=== PATIENT | female | born 1955 | race Caucasian/White ===

== ENCOUNTER 2023-07-29 06:46 | Outpatient (OUT) | payer BC, SELFPAY ==
[2023-07-29 07:27] LABS: Basophils Absolute Auto 0.1 10^3/uL (0.0-0.1); Basophils Percent Auto 1.2 % (0.2-2.0); Eosinophils Absolute Auto 0.4 10^3/uL (0.0-0.7); Eosinophils Percent Auto 4.2 % (0.9-7.0); Hematocrit 41.7 % (36.0-48.0); Hemoglobin 13.8 g/dL (12.0-16.0); Immature Granulocytes Abs Auto 0.02 10^3/uL (0.00-0.03); Immature Granulocytes Pct Auto 0.2 % (0.0-0.5); Lymphocytes Absolute Auto 3.8 10^3/uL (1.2-3.8); Lymphocytes Percent Auto 40.5 % (20.5-60.0); Mean Corpuscular HGB Conc 33.1 g/dL (29.9-35.2); Mean Corpuscular Hemoglobin 31.3 pg (26.7-34.0); Mean Corpuscular Volume 94.6 fL (81.0-99.0); Mean Platelet Volume 11.2 fL (9.5-13.5); Monocytes Absolute Auto 0.8 10^3/uL (0.3-0.8); Monocytes Percent Auto 8.7 % (1.7-12.0); Neutrophils Absolute Auto 4.2 10^3/uL (1.4-6.5); Neutrophils Percent Auto 45.2 % (43.0-75.0); Platelet Count 249 10^3/uL (150-450); Red Blood Count 4.41 10^6/uL (4.20-5.40); Red Cell Distribution Width 11.7 % (11.0-15.0); White Blood Count 9.3 10^3/uL (4.0-11.0)
[2023-07-29 07:49] LABS: Alanine Aminotransferase 43 U/L (14-59); Albumin Level 3.8 g/dL (3.4-5.0); Alkaline Phosphatase 72 U/L (46-116); Anion Gap 13.2; Aspartate Amino Transferase 31 U/L (15-37); BUN Creatinine Ratio 19.2; Bilirubin Total 0.4 mg/dL (0.2-1.0); Calcium 9.3 mg/dL (8.5-10.1); Chloride 103 mmol/L (98-107); Chol HDL Ratio 4.4; Cholesterol 221 mg/dL (<=200); Estimated GFR (African America >60 (>=60); Estimated GFR (Non-African Ame 56 (>=60); Globulin 3.7 g/dL; Glucose 139 mg/dL (74-106); HDL Cholesterol 50 mg/dL (40-60); Potassium 4.2 mmol/L (3.5-5.1); Sodium 140 mmol/L (136-145); Total Protein 7.5 g/dL (6.4-8.2); Triglycerides 263 mg/dL (<=150); VLDL CHOLESTEROL 52.6 mg/dL
== END 2023-07-29 06:47 | disposition home or self-care (01) ==
LOC: LAB 06:50
PROVIDERS: PCP Family Medicine; Visit Provider Family Medicine
DX: Z00.00 Encounter for general adult medical examination without abnormal findings (principal); E78.5 Hyperlipidemia, unspecified; I10 Essential (primary) hypertension
CPT/HCPCS: 36415; 80053; 80061; 85025

== ENCOUNTER 2024-03-26 11:42 | Outpatient (OUT) | payer BC, SELFPAY ==
--- OUTSIDE RECORDS SUMMARY | 2024-03-26 11:49 | XMS_ITS | CCD ---
Author Organization [facility] Care Team Providers Care Retail Merchandising Coordinator Name Role Phone Judith Antunez Unavailable DR JUDITH ANTUNEZ Admitting Unavailable TULIO, DR JUDITH Walton Attending Unavailable TULIO, DR JUDITH Walton Primary Care Unavailable MEG, DR VERNON Nunez Consulting Unavailable TULIO, DR JUDITH Walton Consulting Unavailable TULIO, DR JUDITH Walton Admitting Unavailable TULIO, DR JUDITH Walton Attending Unavailable TULIO, DR JUDITH Walton Primary Care Unavailable TULIO, DR JUDITH Walton Consulting Unavailable MD Lois Limon Attending Provider [phone] MD Judith Antunez Primary Care Provider Asaad, Imad Unavailable Asaad, Imad Admitting Unavailable Ashly, Imad Attending Unavailable Judith Antunez Primary Care Unavailable Judith Antunez Primary Care Unavailable Judith Antunez Attending Unavailable Judith Antunez Admitting Unavailable MD Judith Antunez Primary Care Provider MD Judith Antunez Attending Provider [phone] PHYSICIAN, UNKNOWN Referring Unavailable JUDITH ANTUNEZ Primary Care Unavailable RON LUIS Admitting Unavailable RON LUIS Attending Unavailable Judith Antunez MD Primary Care Provider RON LUIS Attending Unavailable BECKY LOPEZ Attending Unavailable BECKY LOPEZ Attending Unavailable INDER BEGUM Attending Unavailable JUDITH ANTUNEZ Referring Narayan Allergies Allergy Classification Reported Allergen(s) Allergy Type Date of Onset Reaction(s) Facility (1 source) patient allergy list reviewed by nurse or physicia Propensity to adverse reactions 4 Comment:Done [employer] Other (1 source) Allergies Reconciled Propensity to adverse reactions Unknown [employer] Other Medications Current Medications Medication Drug Class(es) Dates Sig (Normalized) Sig (Original) clobetasol propionate 0.5 mg/ml topical cream (2 sources) Corticosteroid Start: 07-20-2022 Clobetasol Propionate 0.05 % 1 application Externally Twice a day for 10 days Jun, Active lisinopril 10 mg oral tablet (8 sources) Angiotensin Converting Enzyme Inhibitor Start: 07-09-2023 take 1 tablet by mouth once daily Lisinopril Active 0 .ROUTE .COMPLEX July 09, 2023 9:28am TAKE 1 TABLET BY MOUTH EVERY DAY Start: 10-04-2022 End: 07-09-2023 lisinopril 10 MG tablet .COM PLEX 07/09/2023 Active 24 hr metoprolol succinate 100 mg extended release oral tablet (8 sources) beta-Adrenergic Eric Start: 07-09-2023 take 1 tablet by mouth once daily Metoprolol Succinate Active 0 .ROUTE .COMPLEX July 09, 2023 9:28am TAKE 1 TABLET BY MOUTH EVERY DAY Start: 10-04-2022 End: 07-09-2023 take 1 tablet by mouth once daily metoprolol succinate XL (Toprol-XL) 100 MG 24 hr tablet Take 100 mg by mouth Daily 07/09/2023 Active PARoxetine hydrochloride 30 mg oral tablet (8 sources) Serotonin Reuptake Inhibitor Start: 07-09-2023 take 1 tablet by mouth once daily Paroxetine Hcl Active 0 .ROUTE .COMPLEX July 09, 2023 9:28am TAKE 1 TABLET BY MOUTH EVERY DAY Start: 10-04-2022 End: 07-09-2023 PARoxetine (Paxil) 30 MG tab let .COMPLEX 07/09/2023 Active phenylephrine hydrochloride 10 mg oral tablet (2 sources) alpha-1 Adrenergic Agonist take 1 tablet by mouth before mealtime phenylephrine (Sudafed PE) 10 MG tablet Take 10 mg by mouth in the morning. Take before meals. Active polyethylene glycol 3350 [id number] mg / potassium chloride 2970 mg / sodium bicarbonate 6740 mg / sodium chloride 5860 mg / sodium sulfate 37002 mg powder for oral solution (1 source) Osmotic Laxative Start: 08-23-19 PEG-3350/Electrolytes 236 GM as directed Orally once daily for 1 days July, Active simvastatin 40 mg oral tablet (8 sources) HMG-CoA Reductase Inhibitor Start: 07-09-19 24 take 1 tablet by mouth once daily Simvastatin Active 0 .ROUTE .COMPLEX 90 July 09, 2023 9:28am TAKE 1 TABLET BY MOUTH EVERY DAY Start: 10-04-2022 End: 07-09-2023 simvastatin (Zocor) 40 MG ta blet .COMPLEX 07/09/2023 Active Problems Active Problems Problem Classification Problem Date Documented Da te Episodic/Chronic Allergic reactions (3 sources) Flexural eczema; Translations: [Flexural eczema] Chronic Anxiety disorders (3 sources) Mixed anxiety and depressive disorder; Translations: [Other specified anxiety disorders] Onset: 12-09-2016 Chronic Diabetes mellitus with complications (1 source) Type II diabetes mellitus uncontrolled; Translations: [Diabetes mellitus without mention of complication, type II or unspecified type, uncontrolled] Onset: 06-08-2014 Chronic Diabetes mellitus without complication (1 source) Type 2 diabetes mellitus without complication; Translations: [Diabetes mellitus without mention of complication, type II or unspecified type, not stated as uncontrolled] Onset: 06-08-2014 Chronic Diabetes mellitus without complication (5 sources) Impaired fasting glycemia; Translations: [Impaired fasting glucose] Onset: 05-17-2013 Episodic Disorders of lipid metabolism (6 sources) Hyperlipidemia; Translations: [Hyperlipidemia, unspecified] Onset: 05-17-2013 07-21-2023 Chronic Diverticulosis and diverticulitis (2 sources) Diverticular disease; Translations: [Diverticulosis] Chronic Essential hypertension (8 sources) Essential hypertension; Translations: [Essential (primary) hypertension] Onset: 07-22-2023 Chronic Miscellaneous mental health disorders (2 sources) Primary insomnia; Translations: [Primary insomnia] 03-16-2024 Chronic Nonmalignant breast conditions (2 sources) Mastodynia; Translations: [Pain of left breast] 07-21-2023 Episodic Osteoarthritis (3 sources) Arthritis of first carpometacarpal joint of left hand; Translations: [Unilateral primary osteoarthritis of first carpometacarpal joint, left hand] Onset: 07-22-2023 07-22-2023 Chronic Other connective tissue disease (1 source) Triggering of digit; Translations: [Trigger finger, unspecified finger] 07-21-2023 Episodic Other connective tissue disease (1 source) Trigger finger, unspecified finger; Translations: [Trigger finger (acquired)] 07-21-2023 Episodic Other gastrointestinal disorders (1 source) Stool DNA-based colorectal cancer screening positive; Translations: [Other fecal abnormalities] Episodic Other hereditary and degenerative nervous system conditions (3 sources) Restless legs; Translations: [Restless legs syndrome] Onset: 03-29-2015 Chronic Other nervous system disorders (2 sources) Word finding difficulty ; Translations: [Other speech disturbances] 03-16-2024 Episodic Other nutritional; endocrine; and metabolic disorders (2 sources) Obesity; Translations: [Obesity, unspecified] Onset: 06-08-2014 Chronic Other nutritional; endocrine; and metabolic disorders (1 source) Obese class I; Translations: [Body mass index 32.0-32.9, adult] Onset: 04-14-2017 Chronic Other screening for suspected conditions (not mental disorders or infectious disease) (7 sources) Encounter for screening for malignant neoplasm of colon; Translations: [Encounter for screening mammogram for malignant neoplasm of breast] Onset: 10-23-2021 Episodic Residual codes; unclassified (3 sources) Obstructive sleep apnea syndrome; Translations: [Obstructive sleep apnea] Onset: 03-29-2015 03-16-2024 Chronic Residual codes; unclassified (4 sources) Amnesia; Translations: [Other amnesia] 03-16-2024 Episodic Skin and subcutaneous tissue infections (2 sources) Erythrasma; Translations: [Erythrasma] Episodic Spondylosis; intervertebral disc disorders; other back problems (3 sources) Cervical radiculopathy; Translations: [Radiculopathy, cervical region] Episodic Past or Other Problems Problem Classification Problem Date Documented Da te Episodic/Chronic Abdominal pain (1 source) Right lower quadrant pain; Translations: [Right lower quadrant pain] Onset: 4 Episodic Acute bronchitis (1 source) Acute bronchitis; Translations: [Acute bronchitis, unspecified] Onset: 6 Episodic Genitourinary symptoms and ill-defined conditions (1 source) Dysuria; Translations: [Dysuria] Onset: 5 Episodic Other connective tissue disease (1 source) Pain in forearm; Translations: [Pain in joint, forearm] Onset: 9 Episodic Other connective tissue disease (1 source) Acquired trigger finger; Translations: [Trigger finger] Onset: 9 Episodic Other gastrointestinal disorders (1 source) Other fecal abnormalities; Translations: [Other fecal abnormalities] Onset: 3 Episodic Other lower respiratory disease (1 source) Snoring; Translations: [Snoring] Onset: 5 Episodic Other non-traumatic joint disorders (1 source) Joint pain; Translations: [Pain in unspecified joint] Onset: 8 Episodic Other nutritional; endocrine; and metabolic disorders (1 source) Abnormal weight gain; Translations: [Abnormal weight gain] Onset: 7 Episodic Otitis media and related conditions (1 source) Acute secretory otitis media; Translations: [Other acute nonsuppurative otitis media, right ear] Onset: 9 Episodic Residual codes; unclassified (1 source) Family history of diabetes mellitus; Translations: [Family history of diabetes mellitus] Onset: 4 Episodic Residual codes; unclassified (1 source) Family history of malignant neoplasm of gastrointestinal tract; Translations: [Family history of malignant neoplasm of digestive organs] Onset: 4 Episodic Results Test Name Value Interpretation Reference Range Facility MM screening mammo BI w/CADo n 08-20-2023 MM screening mammo BI w/CAD [facility] [place] [address] Mammography Report Signed Patient: Dana Snyder MR#: [id number] : 1955 Acct:[id number] Age/Sex: 68 / F ADM Date: 08/19/23 Loc: [place] Room: Type: [facility] Attending Dr: Judith Antunez MD Copies to: Judith Antunez MD Ordering Provider: Judith Antunez MD Date of Service: 08/19/23 MM/MM screening mammo BI w/CAD: Z12.31 - Encounter for screening mammogram for malignant ... CLINICAL DATA: Screening for malignancy. BILATERAL SCREENING MAMMOGRAMS - FULL FIELD DIGITAL WITH TOMOSYNTHESIS AND CAD Tomosynthesis craniocaudal and mediolateral oblique views of both breasts were obtained using low- dose digital technique. Comparison is made to prior studies from 10/23/2021, 10/16/2020, and 06/23/2017. This examination was reviewed with the aid of CAD. There are scattered fibroglandular densities. Benign-appearing lymph nodes are noted along the chest wall. Benign-appearing calcifications are present bilaterally. There are no dominant masses, typically malignant calcifications or architectural distortion. There has been no significant interval change. MM/MM screening mammo BI w/CAD IMPRESSION: NO MAMMOGRAPHIC EVIDENCE OF MALIGNANCY. ROUTINE FOLLOW-UP IS RECOMMENDED IN ONE YEAR. RESULT CODE: 2 Benign Findings(s) DENSITY CODE: 2 (approximately 25-50% glandular) FOLLOW UP: 1YR The false-negative rate of mammography is approximately 10-percent. Management of a palpable abnormality must be based on clinical grounds. Patient was entered into a reminder system with a target due date for the next mammogram. Impression dictated by: Claude Peñaloza M.D.08/20/2023 11:50 AM Dictation Location: [facility] Transcribed By: ELMER 08/20/23 1150 Dictated By: Claude Peñaloza II, MD 08/20/23 1146 Signed By: 08/20/23 1150 Normal [facility] Basophils Auto (Bld) [#/Vol] on 07-29-2023 Basophils (Bld) [#/Vol] 0.1 10 3/uL 0.0-0.1 [facility] Basophils/100 WBC Auto (Bld) on 07-29-2023 Basophils/100 WBC (Bld) 1.2 % 0.2-2.0 [facility] Cholesterol in LDL Calc [Mas s/Vol]on 07-29-2023 Cholesterol in LDL [Mass/Vol] 119.0 mg/dL [facility] Comment on above: <100 mg/dl [id number] 0-129 mg/dl NEAR OR ABOVE [id number] mg/dl BORDERLINE [id number] mg/dl HIGH>190 mg/dl VERY HIGH Cholesterol in VLDL Calc [Ma ss/Vol]on 07-29-2023 Cholesterol in VLDL [Mass/Vol] 52.6 mg/dL [facility] Eosinophils/100 WBC Auto (Bl d)on 07-29-2023 Eosinophils/100 WBC (Bld) 4.2 % 0.9-7.0 [facility] Erythrocyte distribution wid th Auto (RBC) [Ratio]on 07-29-2023 Erythrocyte distribution width (RBC) [Ratio] 11.7 % 11.0-15.0 [facility] Estimated glomerular filtrat ion rate (GFR) non- Americanon 07-29-2023 GFR/1.73 sq M.predicted among non-blacks MDRD (S/P/Bld) [Vol rate/Area] 56 mL/min/{1.73_m2} >=60 [facility] Globulin Calc (S) [Mass/Vol] on 07-29-2023 Globulin (S) [Mass/Vol] 3.7 g/dL [facility] Hematocrit Auto (Bld) [Volum e fraction]on 07-29-2023 Hematocrit (Bld) [Volume fraction] 41.7 % 36.0-48.0 [facility] Hemoglobin [Mass/volume] in Bloodon 07-29-2023 Hemoglobin (Bld) [Mass/Vol] 13.8 g/dL 12.0-16.0 [facility] Laboratory - Chemistry and C hemistry - challengeon 07-29-2023 Albumin [Mass/Vol] 3.8 g/dL 3.4-5.0 [facility] ALP [Catalytic activity/Vol] 72 U/L 46-116 [facility] ALT [Catalytic activity/Vol] 43 U/L 14-59 [facility] AST [Catalytic activity/Vol] 31 U/L 15-37 [facility] Bilirubin [Mass/Vol] 0.4 mg/dL 0.2-1.0 [facility] Calcium [Mass/Vol] 9.3 mg/dL 8.5-10.1 [facility] Chloride [Moles/Vol] 103 mmol/L 98-107 [facility] Cholesterol [Mass/Vol] 221 mg/dL <=200 [facility] Cholesterol in HDL [Mass/Vol] 50 mg/dL 40-60 [facility] Comment on above: > or =60 mg/dl - LOW CARDIOVASCULAR RISK<40 mg/dl - HIGH CARDIOVASCULAR RISK CO2 [Moles/Vol] 28.0 mmol/L 21.0-32.0 [facility] Creatinine [Mass/Vol] 0.99 mg/dL 0.55-1.02 [facility] GFR/1.73 sq M.predicted MDRD (S/P/Bld) [Vol rate/Area] mL/min/{1.73_m2} >=60 [facility] Glucose [Mass/Vol] 139 mg/dL 74-106 [facility] Potassium [Moles/Vol] 4.2 mmol/L 3.5-5.1 [facility] Protein [Mass/Vol] 7.5 g/dL 6.4-8.2 [facility] Sodium [Moles/Vol] 140 mmol/L 136-145 [facility] Triglyceride [Mass/Vol] 263 mg/dL <=150 [facility] Urea nitrogen [Mass/Vol] 19.0 mg/dL 7.0-18.0 [facility] Urea nitrogen/Creatinine [Mass ratio] 19.2 mg/mg [facility] Laboratory - Hematology and Cell countson 07-29-2023 Immature granulocytes/100 WBC (Bld) 0.2 % 0.0-0.5 [facility] Leukocytes [#/volume] correc bruce for nucleated erythrocytes in Blood by Automated counon 07-29-2023 WBC corrected for nucl RBC Auto (Bld) [#/Vol] 9.3 10 3/uL 4.0-11.0 [facility] Lymphocytes Auto (Bld) [#/Vo l]on 07-29-2023 Lymphocytes (Bld) [#/Vol] 3.8 10 3/uL 1.2-3.8 [facility] Lymphocytes/100 WBC Auto (Bl d)on 07-29-2023 Lymphocytes/100 WBC (Bld) 40.5 % 20.5-60.0 [facility] MCH Auto (RBC) [Entitic mass ]on 07-29-2023 MCH (RBC) [Entitic mass] 31.3 pg 26.7-34.0 [facility] MCHC Auto (RBC) [Mass/Vol]on 07-29-2023 MCHC (RBC) [Mass/Vol] 33.1 g/dL 29.9-35.2 [facility] MCV Auto (RBC) [Entitic vol] on 07-29-2023 MCV (RBC) [Entitic vol] 94.6 fL 81.0-99.0 [facility] Monocytes Auto (Bld) [#/Vol] on 07-29-2023 Monocytes (Bld) [#/Vol] 0.8 10 3/uL 0.3-0.8 [facility] Monocytes/100 WBC Auto (Bld) on 07-29-2023 Monocytes/100 WBC (Bld) 8.7 % 1.7-12.0 [facility] Neutrophils Auto (Bld) [#/Vo l]on 07-29-2023 Neutrophils (Bld) [#/Vol] 4.2 10 3/uL 1.4-6.5 [facility] Neutrophils/100 WBC Auto (Bl d)on 07-29-2023 Neutrophils/100 WBC (Bld) 45.2 % 43.0-75.0 [facility] No Panel Informationon 07-28 Eosinophils # (Auto) 0.4 10 3/uL 0.0-0.7 [facility] Immature Granulocyte # (Auto) 0.02 10 3/uL 0.00-0.03 [facility] Platelet mean volume Auto (B ld) [Entitic vol]on 07-29-2023 Platelet mean volume (Bld) [Entitic vol] 11.2 fL 9.5-13.5 [facility] Platelets Auto (Bld) [#/Vol] on 07-29-2023 Platelets (Bld) [#/Vol] 249 10 3/uL 150-450 [facility] RBC Auto (Bld) [#/Vol]on RBC (Bld) [#/Vol] 4.41 10 6/uL 4.20-5.40 [facility] Serum or plasma albumin/glob ulin mass ratioon 07-29-2023 Albumin/Globulin [Mass ratio] 1.0 {ratio} [facility] Serum or plasma anion gap de terminationon 07-29-2023 Anion gap [Moles/Vol] 13.2 mmol[facility] Serum or plasma total choles terol/high density lipoprotein (HDL) cholesterol mass bessy 07-29-2023 Cholesterol.total/Cho lesterol in HDL [Mass ratio] 4.4 {ratio} [facility] Comment on above: 3.3 - 4.4 LOW RISK4. 4 - 7.1 AVERAGE RISK7.1 - 11.0 MODERATE RISK>11.0 HIGH RISK Alex 10-04-2022 L Specimen: [id number] Received: 10/04/22 Status: ULISES [place] Num: [id number] Spec Type: Surgical Subm Dr: Lois Limon MD Tissues: A Colon Biopsy (ASCENDING POLYPS) B Colon Biopsy (BNORMAL MUCOSA SIGMOID) Procedures: JOSE Gross/Micro L4/2 Age/ Patient Sex Location Account Attending Physician Dana Snyder 67/F [id number] Lois Limon MD SPEC NUM: [id number] RECD: 10/04/22 STATUS: ULISES [place] NUM: [id number] GILMER: 10/04/22- SUBM DR: Lois Limon MD ENTERED: 10/04/[address] [facility] [address]: SPEC TYPE: Surgical DEPT: S ORDERED: HE/4, Gross/Micro L4/2 ORDERED: HE/4, Gross/Micro L4/2 Pathological Diagnosis A. Colon, ascending, polyps, biopsy: - Hyperplastic polyps of colon. B. Colon, sigmoid, abnormal mucosa, biopsy: - Colonic mucosa with hyperplastic features. Clinical Information Positive Cologuard Gross Description A. Received in formalin labeled with the patient's name, date of and Ascending polyps are three shepherd tissues ranging from 0.5 x 0.3 x 0.2 cm to 0.6 x 0.4 x 0.2 cm admixed with fecal material. Entirely submitted in one cassette labeled A1. B. Received in formalin labeled with the patient's name, date of and abnormal sigmoid mucosa are two shepherd tissues measuring 0.3 x 0.2 x 0.2 cm and 0.5 x 0.3 x 0.2 cm. Entirely submitted in one cassette labeled B1. Specimen: [id number] Received: 10/04/22 Status: ULISES [place] Num: [id number] Spec Type: Surgical Subm Dr: Lois Limon MD Tissues: A Colon Biopsy (ASCENDING POLYPS) B Colon Biopsy (BNORMAL MUCOSA SIGMOID) Procedures: HE/4, Gross/Micro L4/2 Patient: Holden Snyderen [id number] (Continued) Specimen: [id number] Received: 10/04/22 (Continued) Signed (signature on file) Jaden Mauro MD 10/07/221001 Specimen: [id number] Received: 10/04/22 Status: ULISES [place] Num: [id number] Spec Type: Surgical Subm Dr: Lois Limon MD Tissues: A Colon Biopsy (ASCENDING POLYPS) B Colon Biopsy (BNORMAL MUCOSA SIGMOID) Procedures: MARY ANN/Je, Gross/Micro L4/2 Patient: Dana Snyder [id number] (Continued) Specimen: [id number] Received: 10/04/22 (Continued) Microscopic Description A. Two H E slides reviewed. The microscopic examination confirms the diagnosis. B. Two H E slides reviewed. The microscopic examination confirms the diagnosis. CPT Codes 28589r4 Specimen: [id number] Received: 10/04/22 Status: ULISES [place] Num: [id number] Spec Type: Surgical Subm Dr: Lois Limon MD Tissues: A Colon Biopsy (ASCENDING POLYPS) B Colon Biopsy (BNORMAL MUCOSA SIGMOID) Procedures: HE/4, Gross/Micro L4/2 Patient: Dana Snyder [id number] (Continued) Signed (signature on file) Jaden Mauro MD 10/07/22 1002 Normal [facility] CBC AUTO DIFFon 08-10-2022 BASO # 0.1 103/ul Normal 0.0-0.1 [facility] Comment on above: Performed By: #### C BC #### [facility] [address] [place] [address] Dr. Mj Dorsey Basophils/100 WBC (Bld) 0.9 % Normal 0.2-2.0 [facility] Comment on above: Performed By: #### C BC #### [facility] [address] [place] [address] Dr. jM Dorsey EO # 0.3 103/ul Normal 0.0-0.7 [facility] Comment on above: Performed By: #### C BC #### [facility] [address] [place] [address] Dr. Mj Dorsey Eosinophils/100 WBC (Bld) 3.2 % Normal 0.9-7.0 [facility] Comment on above: Performed By: #### C BC #### [facility] [address] [place] [address] Dr. Mj Dorsey Erythrocyte distribution width (RBC) [Ratio] 11.9 % Normal 11.0-15.0 [facility] Comment on above: Performed By: #### C BC #### [facility] [address] [place] [address] Dr. Mj Dorsey Hematocrit (Bld) [Volume fraction] 41.4 % Normal 36.0-48.0 [facility] Comment on above: Performed By: #### C BC #### [facility] [address] [place] [address] Dr. Mj Dorsey Hemoglobin (Bld) [Mass/Vol] 13.9 g/dL Normal 12.0-16.0 [facility] Comment on above: Performed By: #### C BC #### [facility] [address] [address] [address] Mj Dorsey IG # 0.03 10e3/ul Normal 0.00-0.03 [facility] Comment on above: Performed By: #### C BC #### [facility] [address] [place] [address] Dr. Mj Dorsey IG % 0.3 % Normal 0.0-0.5 [facility] Comment on above: Performed By: #### C BC #### [facility] [address] [place] [address] Dr. Mj Dorsey LYMPH # 4.3 103/ul Critically high 1.2-3.8 [facility] Comment on above: Performed By: #### C BC #### [facility] [address] [place] [address] Dr. Mj Dorsey Lymphocytes/100 WBC (Bld) 41.3 % Normal 20.5-60.0 [facility] Comment on above: Performed By: #### C BC #### [facility] [address] [place] [address] Dr. Mj Dorsey MANUAL DIFF REQ NO Normal [facility] Comment on above: Performed By: #### C BC #### [facility] [address] [place] [address] Dr. Mj Dorsey MCH (RBC) [Entitic mass] 31.2 pg Normal 26.7-34.0 [facility] Comment on above: Performed By: #### C BC #### [facility] [address] [place] [address] Dr. Mj Dorsey MCHC (RBC) [Mass/Vol] 33.6 g/dL Normal 29.9-35.2 [facility] Comment on above: Performed By: #### C BC #### [facility] [address] [address] [address] Mj Dorsey MCV (RBC) [Entitic vol] 92.8 fL Normal 81.0-99.0 [facility] Comment on above: Performed By: #### C BC #### [facility] [address] [address] [address] Mj Dorsey MONO # 0.8 103/ul Normal 0.3-0.8 [facility] Comment on above: Performed By: #### C BC #### [facility] [address] [place] [address] Dr. Mj Dorsey Monocytes/100 WBC (Bld) 8.0 % Normal 1.7-12.0 [facility] Comment on above: Performed By: #### C BC #### [facility] [address] [place] [address] Dr. Mj Dorsey NEUT # 4.9 103/ul Normal 1.4-6.5 [facility] Comment on above: Performed By: #### C BC #### [facility] [address] [place] [address] Dr. Mj Dorsey Neutrophils/100 WBC (Bld) 46.3 % Normal 43.0-75.0 [facility] Comment on above: Performed By: #### C BC #### [facility] [address] [place] [address] Dr. Mj Dorsey Platelet mean volume (Bld) [Entitic vol] 10.4 fL Normal 9.5-13.5 [facility] Comment on above: Performed By: #### C BC #### [facility] [address] [place] [address] Dr. Mj Dorsey PLT 328 103/ul Normal 150-450 [facility] Comment on above: Performed By: #### C BC #### [facility] [address] [place] [address] Dr. Mj Dorsey RBC 4.46 106/ul Normal 4.20-5.40 [facility] Comment on above: Performed By: #### C BC #### [facility] [address] [address] [address] Mj Dorsey WBC 10.5 103/ul Normal 4.0-11.0 [facility] Comment on above: Performed By: #### C BC #### [facility] [address] [place] [address] Dr. Mj Dorsey GLYCOHEMOGLOBIN A1Con 2022 ADA RECOMMENDATION SEE BELOW Normal [facility] Comment on above: Result Comment: ADA RECOMMENDED LIMIT 4.0 - 6.0 ADA THERAPEUTIC TARGET < 7.0 ACTION SUGGESTED > 7.0 Performed By: #### A 1C #### [facility] [address] [place] [address] Dr. Mj Dorsey Glucose [Mass/Vol] 128 mg/dL Normal [facility] Comment on above: Performed By: #### A 1C #### [facility] [address] [place] [address] Dr. Mj Dorsey HbA1c (Bld) [Mass fraction] 6.1 % Normal 4.5-6.2 [facility] Comment on above: Performed By: #### A 1C #### [facility] [address] [place] [address] Dr. Mj Dorsey LIPID PROFILEon 08-10-2022 CHOL-HDL RATIO NORM SEE BELOW Normal [facility] Comment on above: Result Comment: 3.3 - 4.4 LOW RISK 4.4 - 7.1 AVERAGE RISK 7.1 - 11.0 MODERATE RISK >11.0 HIGH RISK Performed By: #### C MP, LIPID #### [facility] [address] [place] [address] Dr. Mj Dorsey Cholesterol [Mass/Vol] 153 mg/dL Normal <=200 [facility] Comment on above: Performed By: #### C MP, LIPID #### [facility] [address] [place] [address] Dr. Mj Dorsey Cholesterol in HDL [Mass/Vol] 41 mg/dL Normal 40-60 [facility] Comment on above: Performed By: #### C MP, LIPID #### [facility] [address] [place] [address] Dr. Mj Dorsey Cholesterol in LDL [Mass/Vol] 68.8 mg/dL Normal [facility] Comment on above: Performed By: #### C MP, LIPID #### [facility] [address] [address] [address] Mj Dorsey Cholesterol.total/Cho lesterol in HDL [Mass ratio] 3.7 {ratio} Normal [facility] Comment on above: Performed By: #### C MP, LIPID #### [facility] [address] [address] [address] Mj Dorsey HDL NORMAL > or = 60 mg/dl - LOW CARDIOVASCULAR RISK <40 mg/dl - HIGH CARDIOVASCULAR RISK Normal [facility] Comment on above: Performed By: #### C MP, LIPID #### [facility] [address] [place] [address] Dr. Mj Dorsey LDL CALC NORMAL SEE BELOW Normal [facility] Comment on above: Result Comment: <100 mg/dl OPTIMAL 100 - 129 mg/dl NEAR OR ABOVE OPTIMAL 130 - 159 mg/dl BORDERLINE HIGH 160 - 189 mg/dl HIGH >190 mg/dl VERY HIGH Performed By: #### C MP, LIPID #### [facility] [address] [place] [address] Dr. Mj Dorsey Triglyceride [Mass/Vol] 216 mg/dL Critically high <=150 [facility] Comment on above: Performed By: #### C MP, LIPID #### [facility] [address] [place] [address] Dr. Mj Dorsey VLDL CALC 43.2 mg/dL Normal [facility] Comment on above: Performed By: #### C MP, LIPID #### [facility] [address] [address] [address] Mj Dorsey PROF 14(COMP METB)on 023 Albumin [Mass/Vol] 3.5 g/dL Normal 3.4-5.0 [facility] Comment on above: Performed By: #### C MP, LIPID #### [facility] [address] [place] [address] Dr. Mj Dorsey Albumin/Globulin [Mass ratio] 1.0 {ratio} Normal [facility] Comment on above: Performed By: #### C MP, LIPID #### [facility] [address] [address] [address] Mj Dorsey ALP [Catalytic activity/Vol] 65 U/L Normal 46-116 [facility] Comment on above: Performed By: #### C MP, LIPID #### [facility] [address] [address] [address] Mj Dorsey ALT [Catalytic activity/Vol] 41 U/L Normal 14-59 [facility] Comment on above: Performed By: #### C MP, LIPID #### [facility] [address] [address] [address] Mj Dorsey Anion gap [Moles/Vol] 14.3 mmol/L Normal [facility] Comment on above: Performed By: #### C MP, LIPID #### [facility] [address] [place] [address] Dr. Mj Dorsey AST [Catalytic activity/Vol] 18 U/L Normal 15-37 [facility] Comment on above: Performed By: #### C MP, LIPID #### [facility] [address] [place] [address] Dr. Mj Dorsey Bilirubin [Mass/Vol] 0.3 mg/dL Normal 0.2-1.0 [facility] Comment on above: Performed By: #### C MP, LIPID #### [facility] [address] [place] [address] Dr. Mj Dorsey Calcium [Mass/Vol] 8.7 mg/dL Normal 8.5-10.1 [facility] Comment on above: Performed By: #### C MP, LIPID #### [facility] [address] [place] [address] Dr. Mj Dorsey Chloride [Moles/Vol] 108 mmol/L Critically high 98-107 [facility] Comment on above: Performed By: #### C MP, LIPID #### [facility] [address] [address] [address] Mj Dorsey CO2 [Moles/Vol] 30.5 mmol/L Normal 21.0-32.0 [facility] Comment on above: Performed By: #### C MP, LIPID #### [facility] [address] [address] [address] Mj Dorsey Creatinine [Mass/Vol] 0.93 mg/dL Normal 0.55-1.02 [facility] Comment on above: Performed By: #### C MP, LIPID #### [facility] [address] [place] [address] Dr. Mj Dorsey EGFR-AF MOSOTHO >60 Normal >=60 [facility] Comment on above: Performed By: #### C MP, LIPID #### [facility] [address] [address] [address] Mj Dorsey EGFR-NON AF MOSOTHO >60 Normal >=60 [facility] Comment on above: Performed By: #### C MP, LIPID #### [facility] [address] [place] [address] Dr. Mj Dorsey Globulin (S) [Mass/Vol] 3.6 g/dL Normal [facility] Comment on above: Performed By: #### C MP, LIPID #### [facility] [address] [place] [address] Dr. Mj Dorsey Glucose [Mass/Vol] 121 mg/dL Critically high 74-106 [facility] Comment on above: Performed By: #### C MP, LIPID #### [facility] [address] [place] [address] Dr. Mj Dorsey Potassium [Moles/Vol] 4.8 mmol/L Normal 3.5-5.1 [facility] Comment on above: Performed By: #### C MP, LIPID #### [facility] [address] [address] [address] Mj Dorsey Protein [Mass/Vol] 7.1 g/dL Normal 6.4-8.2 [facility] Comment on above: Performed By: #### C MP, LIPID #### [facility] [address] [address] [address] Mj Dorsey Sodium [Moles/Vol] 148 mmol/L Critically high 136-145 [facility] Comment on above: Performed By: #### C MP, LIPID #### [facility] [address] [place], [place] [address] Dr. Mj Dorsey Urea nitrogen [Mass/Vol] 14.0 mg/dL Normal 7.0-18.0 [facility] Comment on above: Performed By: #### C MP, LIPID #### [facility] [address] [place], [place] [address] Dr. Mj Dorsey Urea nitrogen/Creatinine [Mass ratio] 15.1 mg/mg Normal [facility] Comment on above: Performed By: #### C MP, LIPID #### [facility] [address] [place], [place] [address] Dr. Mj Dorsey MG MAMM SCREEN 3D EVY CADon 10-23-2021 MG MAMM SCREEN 3D EVY CAD Patient: DANA SNYDER Exam Date: 10/23/2021 : 1955 Gender:F Ordering : DR JUDITH ANTUNEZ M.D. Admission #: [id number] Family : Order #: [id number] CLICK HERE TO VIEW EXAM RADIOLOGY REPORT PROCEDURE: MAMMOGRAM SCREENING 3D BILATERAL CAD COMPARISON: MG MAMM SCREEN 3D EVY CAD, 10/16/2020. MG MAMM SCREEN EVY W CAD, 06/23/2017. INDICATIONS: Screening mammography Calculator Name NCI Breast Cancer Risk Assessment Tool 5 Year Breast Cancer Risk 1.40% Lifetime Breast Cancer Risk 5.80% Personal Breast Cancer No Personal Ovarian Cancer No Treatments None Family Cancers None LOCATION: [facility] BREAST COMPOSITION: Scattered areas fibroglandular density. FINDINGS: DIAGNOSTIC CATEGORY 1--NEGATIVE. RIGHT BREAST: No significant suspicious finding. No significant change has occurred. LEFT BREAST: No significant suspicious finding. No significant change has occurred. RECOMMENDATIONS: ROUTINE MAMMOGRAM AND CLINICAL EVALUATION IN 12 MONTHS. PLEASE NOTE: A NORMAL MAMMOGRAM DOES NOT EXCLUDE THE POSSIBILITY OF BREAST CANCER. A CLINICALLY SUSPICIOUS PALPABLE LUMP SHOULD BE BIOPSIED. Dictated by: Vernon aPrks M.D. on 10/24/2021 at 10:38 Approved by: Vernon Parks M.D. on 10/24/2021 at 12:08 Normal [facility] Vital Signs Date Time Vital Sign Value Performing Clinician Facility 03-16-2024 15:33-0500 Body height 154.9 cm Inder Kel DO Work Phone: [facility] 03-16-2024 15:33-0500 Body mass index (BMI) [Ratio] 37.98 kg/m2 Inder Kel DO Work Phone: [facility] 03-16-2024 15:33-0500 Body weight 91.17 kg Inder Kel DO Work Phone: [facility] 03-16-2024 15:33-0500 Diastolic blood pressure 89 mm[Hg] Inder Kel DO Work Phone: [facility] 03-16-2024 15:33-0500 Heart rate 76 /min Inder Kel DO Work Phone: [facility] 03-16-2024 15:33-0500 Systolic blood pressure 167 mm[Hg] Inder Kel DO Work Phone: [facility] 07-21-2023 15:34-0400 Body height 154.94 cm MD Judith Antunez Work Phone: [facility] 07-21-2023 15:34-0400 Body mass index (BMI) [Ratio] 37.6 kg/m2 MD Judith Antunez Work Phone: [facility] 07-21-2023 15:34-0400 Body weight 90.32 kg MD Judith Antunez Work Phone: [facility] 07-21-2023 15:34-0400 Diastolic blood pressure 82 mm[Hg] MD Judith Antunez Work Phone: [facility] 07-21-2023 15:34-0400 Heart rate 66 /min MD Judith Antunez Work Phone: [facility] 07-21-2023 15:34-0400 Systolic blood pressure 141 mm[Hg] MD Judith Antunez Work Phone: [facility] 10-04-2022 11:32-0400 Diastolic blood pressure 95 mm[Hg] MD Judith Antunez Work Phone: [facility] 10-04-2022 11:32-0400 Heart rate 60 /min MD Judith Antunez Work Phone: [facility] 10-04-2022 11:32-0400 Respiratory rate 16 /min MD Judith Antunez Work Phone: [facility] 10-04-2022 11:32-0400 SaO2% (BldA) [Mass fraction] 93 % MD Judith Antunez Work Phone: [facility] 10-04-2022 11:32-0400 Systolic blood pressure 129 mm[Hg] MD Judith Antunez Work Phone: [facility] 10-04-2022 10:06-0400 Body height 154.94 cm MD Judith Antunez Work Phone: [facility] 10-04-2022 10:06-0400 Body temperature 98.8 [degF] MD Jduith Antunez Work Phone: [facility] 10-04-2022 10:06-0400 Body weight 85.72 kg MD Judith Antunez Work Phone: [facility] 07-18-2022 16:15-0400 Body height 153.67 cm Judith Antunez Other [facility] [employer] Other 07-18-2022 16:15-0400 Body mass index (BMI) [Ratio] 36.3 kg/m2 Judith Antunez Other [employer] Other 07-18-2022 16:15-0400 Body weight 85.73 kg Judith Antunez Other [employer] Other 07-18-2022 16:15-0400 Diastolic blood pressure 80 mm[Hg] Judith Antunez Other [employer] Other 07-18-2022 16:15-0400 SaO2% (BldA) [Mass fraction] 97 % Judith Antunez Other [employer] Other 07-18-2022 16:15-0400 Systolic blood pressure 126 mm[Hg] Judith Antunez Other [employer] Other Encounters Encounter Date Encounter Type Care Provider Facility Start: 03-16-2024 End: 03-16-2024 Office consultation new/estab patient 60 min Inder Kel DO Work Phone: [facility] Comment on above: Memory loss (Primary Dx); Word finding difficulty; Primary insomnia; TIMOTEO (obstructive sleep apnea) Start: 03-16-2024 End: 03-16-2024 ambulatory INDER KEL Not Available Start: 03-16-2024 End: 03-16-2024 Bamboo flowsheet Inder Kel DO Work Phone: [facility] Start: 03-16-2024 End: 03-16-2024 Bamboo flowsheet Inder Kel DO Work Phone: [facility] Start: 10-06-2023 End: 10-06-2023 ambulatory BECKY B APLING Not Available Start: 09-08-2023 End: 09-08-2023 ambulatory BECKY B APLING Not Available Start: 08-27-2023 End: 08-27-2023 Evaluation and management of inpatient [facility] Start: 08-26-2023 End: 08-26-2023 ambulatory [facility] Start: 08-19-2023 End: 08-19-2023 ambulatory Judith Antunez Facility:[facility] Start: 08-19-2023 End: 08-19-2023 ambulatory MD Judith Antunez Work Phone: [facility] Work Phone: Start: 08-19-2023 End: 08-19-2023 Patient encounter procedure MD Judith Antunez Work Phone: [facility] Work Phone: Start: 07-29-2023 End: 07-29-2023 ambulatory RON LUIS Not Available Start: 07-29-2023 Non-patient / Non-visit MD Raquel Antunez Work Phone: [facility] Physician [facility] [employer] Work Phone: Start: 07-21-2023 Patient encounter status MD Judith Antunez Work Phone: [facility] Start: 07-21-2023 End: 07-21-2023 Encounter for general adult medical examination without abnormal findings MD Judith Antunez Work Phone: [facility] Start: 07-21-2023 End: 07-21-2023 Patient encounter procedure MD Judith Antunez Work Phone: [facility] Physician [facility] Work Phone: Start: 11-04-2022 End: 11-04-2022 ambulatory Imad Asaad Other [facility] [employer] Other Start: 11-04-2022 Telephone encounter Imad Asaad [employer] Start: 10-04-2022 End: 10-04-2022 ambulatory Imad Asaad Facility:[facility] Start: 10-04-2022 End: 10-04-2022 Admission to same day surgery center MD Judith Antunez Work Phone: [facility] Work Phone: Start: 10-04-2022 End: 10-04-2022 ambulatory MD Judith Antunez Work Phone: [facility] Work Phone: Start: 08-10-2022 End: 08-11-[address] JUDITH ANTUNEZ Facility: Start: 07-18-2022 End: 07-18-2022 ambulatory Judith Antunez Other [facility] [employer] Other Start: 07-18-2022 Encounter for genera l adult medical examination without abnormal findings Judith Antunez [facility] Start: 07-18-2022 Periodic preventive med est patient 40-64yrs Judith Antunez [facility] Start: 10-23-2021 End: 10-24-[address] JUDITH ANTUNEZ Facility: Start: 05-17-2019 Adult health examination Lois Limon Other [employer] Other Start: 05-17-2019 Problem, abnormal examination Impamella Limon Other [employer] Other Procedures Date Procedure Procedure Detail Performing Clinician Start: 10-04-2022 Colonoscopy MD Judith Antunez Work Phone: Start: 05-02-2016 Screening mammography I taylor Limon Other Pre-surgery evaluation Pat Antunez Other Screening for malign ant neoplasm of breast Impamella Limon Other Screening for malign ant neoplasm of colon Judith Antunez Other Plan of Treatment Date Care Activity Detail Author Start: 05-12-2024 End: 05-12-2024 Patient encounter procedure 05/12/2024 2:45 PM EST Office Visit [facility] [place] [facility] [address] [place] [address] Inder Begum DO [address] [place] [address] [facility] Start: 03-16-2024 End: 03-16-2024 Patient encounter procedure 03/16/2024 4:00 PM EST Office Visit [facility] [place] [facility] [address] [place] [address] Inder Begum DO [address] [place] [address] [facility] Comment on above: Arrived Start: 03-16-2024 End: 03-16-2025 Cobalamin (Vitamin B12) [Mass/volume] in Serum or Plasma Vitamin B12 Lab Routine Memory loss Expected: 03/16/2024 (Approximate), Expires: 03/16/2025 [facility] Comment on above: Expected: 03/16/2024 (Approximate), Expires: 03/16/2025 Start: 03-16-2024 End: 03-16-2025 EEG awake or drowsy EEG awake or drowsy Neurology Routine Memory loss Expected: 03/16/2024 (Approximate), Expires: 03/16/2025 [facility] Work Phone: Comment on above: Expected: 03/16/2024 (Approximate), Expires: 03/16/2025 Start: 03-16-2024 End: 03-16-2025 Folate [Mass/volume] in Serum or Plasma Folate Lab Routine Memory loss Expected: 03/16/2024 (Approximate), Expires: 03/16/2025 [facility] Comment on above: Expected: 03/16/2024 (Approximate), Expires: 03/16/2025 Start: 03-16-2024 End: 03-16-2025 MR Brain WO contrast MR brain wo contrast Imaging Routine Memory loss Expected: 03/16/2024, Expires: 03/16/2025 [facility] Comment on above: Expected: 03/16/2024 , Expires: 03/16/2025 Start: 03-16-2024 End: 03-16-2025 Thyrotropin [Units/volume] in Serum or Plasma TSH Lab Routine Memory loss Expected: 03/16/2024 (Approximate), Expires: 03/16/2025 [facility] Comment on above: Expected: 03/16/2024 (Approximate), Expires: 03/16/2025 Start: 11-30-2023 Influenza vaccination Influenza Vacc ine (#1) [facility] Start: 08-19-2023 Screening mammograph y of bilateral breasts MM screening mammo BI w/CAD [facility] Start: 10-04-2022 [facility] Start: 2022 Pneumococcal Vaccine : 65+ Years (1 of 1 - PCV) Pneumococcal Vaccine: 65+ Years (1 of 1 - PCV) [facility] Start: 1997 Screening for malign ant neoplasm of breast Mammogram [facility] Start: 1955 Screening for malign ant neoplasm of colon [facility] Comprehensive metabo lic 2000 panel - Serum or Plasma [facility] Patient Education Colon polyps H emorrhoids (DC) Diverticulosis (DC) [facility] Work Phone: Immunizations Immunization Date Immunization Notes Care Provider Mikayla ivan 01-06-2023 Influenza, Seasonal, Quadrivalent, Adjuvanted Inder Kel DO Work Phone: [facility] 01-06-2023 influenza virus vaccine, unspecified formulation Inder Kel DO Work Phone: [facility] 12-26-2021 influenza virus vaccine, split virus (incl. purified surface antigen) Imad Asaad Other [facility] [employer] Other 12-26-2021 influenza virus vaccine, unspecified formulation MD Judith Antunez Work Phone: [facility] 12-26-2021 influenza, injectabl e, quadrivalent, preservative free Inder Kel DO Work Phone: [facility] 03-14-2021 COVID-19 Vaccine Pfi zer - Documentation Purposes Only Imad Asaad Other [facility] 03-14-2021 influenza virus vaccine, split virus (incl. purified surface antigen) Imad Asaad Other [facility] [employer] Other 03-14-2021 influenza virus vaccine, unspecified formulation MD Judith Antunez Work Phone: [facility] 03-14-2021 Influenza, injectabl e, Madin [place] Canine Kidney, preservative free, quadrivalent Inder Kel DO Work Phone: [facility] 07-20-2020 COVID-19 Vaccine Pfi zer - Documentation Purposes Only Imad Asaad Other [facility] 06-29-2020 COVID-19 Vaccine Pfi zer - Documentation Purposes Only Imad Asaad Other [facility] 02-10-2020 influenza virus vaccine, split virus (incl. purified surface antigen) Imad Asaad Other [facility] [employer] Other 02-10-2020 influenza virus vaccine, unspecified formulation MD Judith Antunez Work Phone: [facility] 02-10-2020 influenza, injectabl e, quadrivalent, contains preservative Inder Kel DO Work Phone: [facility] 01-12-2019 influenza, injectabl e, quadrivalent, preservative free Inder Kel DO Work Phone: [facility] 12-30-2017 influenza, live, intranasal, quadrivalent Inder Kel DO Work Phone: [facility] 12-01-2017 influenza virus vaccine, split virus (incl. purified surface antigen) Imad Asaad Other [facility] [employer] Other 12-01-2017 influenza virus vaccine, unspecified formulation MD Judith Antunez Work Phone: [facility] 12-01-2017 influenza, injectabl e, quadrivalent, preservative free Inder Kel DO Work Phone: [facility] 12-23-2016 influenza, injectabl e, quadrivalent, preservative free Inder Kel DO Work Phone: [facility] 12-23-2016 tetanus and diphther ia toxoids, adsorbed, preservative free, for adult use (5 Lf of tetanus toxoid and 2 Lf of diphtheria toxoid) Imad Asaad Other [facility] 01-25-2016 tetanus and diphther ia toxoids, adsorbed, preservative free, for adult use (5 Lf of tetanus toxoid and 2 Lf of diphtheria toxoid) Imad Asaad Other [facility] Payers Date Payer Category [id number] [id number] 1955 Unknown [id number]. [id number] 1955 Unknown [id number] [id number]. [id number] 1955 Unknown [id number] [id number]. 2.1286 1955 Unknown [id number]. 2.1286 1955 Unknown [id number] [id number]. 2.1259 1955 Unknown [id number]. 2.1259 1955 Unknown [id number] [id number]. 2.1259 1955 Unknown [id number] [id number]. 2.1259 Unknown [id number] 2.531 Unknown [id number] [id number] Social History Date Type Detail Facility Unknown if ever smoked [employer] Other Start: 10-06-2023 End: 03-16-2024 Sex Assigned At [facility] [employer] Other Start: 10-04-2022 End: 03-16-2024 Tobacco smoking status NHIS Ex-smoker (finding) [facility] Start: 1955 Sex Assigned At Female [facility] Start: 03-31-1999 End: 03-31-2004 History of tobacco use Current smoker [facility] Start: 03-31-1999 End: 03-31-2004 History of tobacco use Cigarette Smoker [facility] Start: 07-29-2023 End: 03-16-2024 Cigarettes smoked current (pack per day) - Reported 0.5 [facility] Start: 07-29-2023 End: 03-16-2024 Tobacco use and exposure Smokeless tobacco non-user [facility] Start: 10-06-2023 End: 03-16-2024 Alcoholic beverage intake Ex-drinker (finding) [facility] Start: 07-28-2023 Gender identity Identifies as female gender (finding) [facility] Start: 07-28-2023 Sexual orientation Heterosexual (finding) [facility] Goals Date Patient Goal Desired Activity /State History of Present illness Narrative 03-16-2024 Inder BegumDO - 03/16/2024 4:00 PM EST Note Date & Type Note Facility 03-16-2024 History of Presen t illness Narrative Images from the original note were not included. Chief Complaint Patient presents with Memory Loss Subjective Word-finding difficulty, family history of dementia - [place] [facility] referral received from Dr Judith Antunez MD Dana is a 68 year old female being seen in a neurological consultation at the request of Dr Judith Antunez for memory loss. Patient reports trouble finding words. She states she can never get her point across. She knows what she wants to say or explain in her mind but cannot find the words. 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 She states she can get lost and forget where she at while she is playing. Not enough that she has been asked not to play. She can look at her computer at work and forget what she is doing. It does coma back to her. 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 She does retire on 03/25/2024. She wants to retired. She is unsure how long it has been going on but the memory just seems to steadily worsen. She has not had any recent imaging. Her dad had dementia as an older individual. She goes to bed around 8pm and has trouble falling asleep. She has to get up around 6:55. She has TIMOTEO and wears a BiPAP but she has to crank it down tight and it hurts her neck. She will take a nap Friday after Jainism and she feels better. She will sleep for about 2 hours. She has padding for her head gear. She tried the dreamwear and that did not work for her. She only occasionally take the melatonin. She takes the lowest dosage. She is not getting any CV exercise. Past Medical History: Diagnosis Date Anxiety Arthritis cervical spine CTS (carpal tunnel syndrome) Approx 15 yrs ago, both hands. Dr. Luis operated Depression (CMS/HCC) Diverticulosis Hyperlipidemia (CMS/HCC) Hypertension (CMS/HCC) Insomnia approx 20 years Memory loss 2022 Restless leg syndrome approx 10 years RLS (restless legs syndrome) Tennis elbow in the early Trigger finger twice before - Dr. Luis operated both times Past Surgical History: Procedure Laterality Date CARPAL TUNNEL RELEASE Bilateral SECTION, CLASSIC CHOLECYSTECTOMY NECK SURGERY TOTAL ABDOMINAL HYSTERECTOMY TRIGGER FINGER RELEASE Janelle TRIGGER FINGER RELEASE Left 08/27/2023 Dr. Luis RF Family History Problem Relation Name Age of Onset Cancer Mother Riri Sales Dementia Father Paresh Sales Social History Tobacco Use Smoking status: Former Current packs/day: 0.00 Average packs/day: 0.5 packs/day for 5.0 years (2.5 ttl pk-yrs) Types: Cigarettes Start date: 03/31/1999 Quit date: 03/31/2004 Years since quittin.9 Smokeless tobacco: Never Substance Use Topics Alcohol use: Not Currently Allergies: Patient has no known allergies. General: No fever or chills HEENT: No nasal congestion or runny nose Pulmonary: No shortness of breath or cough Cardiovascular: No chest pain or palpitations GI: No nausea or vomiting : No dysuria or hematuria Musculoskeletal: No new aches or pains or muscle weakness Infectious: no recurrent fevers or infections Dermatologic: No rashes or skin lesions Neurologic: No new headaches or dizziness Vitals: 03/16/24 1533 BP: 167/89 Pulse: 76 Body mass index is 37.98 kg/m . weight: 201 lb Neurologic exam: General: Normal body habitus, cooperative, pleasant Mental status: Awake, alert to person, place and time. Recent and remote memory are intact. Attention and concentration are normal. Fund of knowledge is appropriate for level of education. HEENT: NC/AT Cranial nerves: CN II: Visual sheldon full to confrontation. No loss of vision CN III, IV, : pupils equal round and reactive to light. Extraocular movements intact. No ptosis present. CN V: Facial sensation is normal. CN VII: Full and symmetric facial movement. CN VIII: Hearing is normal CN IX and X: Palate elevates symmetrically. CN XI: Shoulder shrug is normal bilaterally. CN XII: Tongue is midline without atrophy or fasciculation. Speech: Clear and fluent no aphasia or dysarthria Pronator drift: Negative bilateral upper extremity Coordination: Intact, no signs of dysmetria Good finger to nose and rapid alternating movements Sensory: Sensation is intact to light, temperature and vibratory touch throughout four extremities. Pinprick intact in all four extremities. Motor: LUE 5/5 RUE 5/5 LLE 5/5 RLE 5/5 Tone: Physiologic, no tremor, bradykinesia or rigidity DTR: Bilateral Biceps 2/4 Bilateral BR 2/4 Bilateral Patellar 2/4 No spasticity Gait: Normal to casual gait Romberg's Negative Review and summary of old records: Assessment/Plan Diagnoses and all orders for this visit: Memory loss - EEG awake or drowsy; Future - TSH; Future - Vitamin B12; Future - Folate; Future - MR brain wo contrast; Future Word finding difficulty Primary insomnia TIMOTEO (obstructive sleep apnea) 68-year-old female who comes in complaining of some word-finding issues and memory loss. Etiology of this is unclear but certainly she is concerned as her father did have dementia. At this time she scored fairly well on her MSME 29/30 She may have a degree of a pseudodementia as she has obstructive sleep apnea and has some difficulty tolerating the mask and the machine. She also has some insomnia but she is going to bed way too early for her wake time. She should not go to bed till about 1055 as she is not getting up until 655. She should likely take the melatonin every night to try to get her better sleep. She may feel a little more tired before she feels better I am hopeful if she makes some of these changes she will get an improvement and then we can assess her memory better. She is not doing any cardiovascular exercise and that would help her sleep and her memory also. She does not need a full dementia workup Plan: EEG to assess brain waves. MRI brain without to assess for structural lesions or strokes that could cause memory loss. Labwork to assess for reversible causes of memory loss. Brain exercises. Cardiovascular exercise. Mediterranean diet. 8 hours of sleep. 12 hour fasting through the night if able. MMSE 29/30 Neuropsych testing. Get a sleep apnea pillow Counseled on proper sleep hygiene including not going to bed until later around 1055 as she is going to be way too early for her wake time. The patient was counseled on proper sleep hygiene and adequate hours of sleep. The diagnosis was all discussed with the patient. All questions were answered and they agreed with the treatment plan. Patient will call if there are any new issues or questions. Pt has been fully educated on their diagnosis, treatment options, follow up plan, and return instructions Return to clinic: 2 months documented in this encounter [facility] Procedure note 10-04-2022 Note Date & Type Note Facility 10-04-2022 Procedure note [facility] Evaluation note 07-18-2022 Note Date & Type Note Facility 07-18-2022 Evaluation note Encounter Date Diagnosis Assessment Notes Jun, Wellness examination (ICD-10 - Z00.00) general topics regarding health education were discussed in detail. All preventative issues were discussed including remaining a nonsmoker, colorectal screening, the importance of proper sleep for brain health maintenance, maintaining a heart-healthy balanced diet, recognizing and addressing signs of anxiety and depression, maintaining positive relationships with family and friends. Jun, Elevated fasting glucose (ICD-10 - R73.01) recheck w A1C Jun, Essential (primary) hypertension (ICD-10 - I10) chronic problem - check labs. continue med Jun, Screening for colon cancer (ICD-10 - Z12.11) agrees to cologuard Jun, Flexural eczema (ICD-10 - L20.82) Start new med - steroid cream. [facility] [employer] Other Evaluation note 05-17-2013 Note Date & Type Note Facility 05-17-2013 Evaluation note Diagnosis Onset Date Essential (primary) hypertension acute Hyperlipidemia, unspecified May 17, 2013 acute Left trigger finger acute Pain of left breast acute Wellness examination acute [facility] Work Phone: Evaluation note Note Date & Type Note Facility Evaluation note No assessment information availa ble [facility] Work Phone: Evaluation note Note Date & Type Note Facility Evaluation note No Information [facility] [employer] Other Evaluation note Note Date & Type Note Facility Evaluation note Diagnosis Memory loss- Primary Word finding difficulty Primary insomnia Persistent disorder of initiating or maintaining sleep TIMOTEO (obstructive sleep apnea) Obstructive sleep apnea (adult) (pediatric) documented in this encounter [facility] History and physical note Note Date & Type Note Facility History and physical note Note Date/Time October 04, 2022 10:57 am [facility] [address] [place] [address] Gastroenterology H&P Signed Patient: Dana Snyder MR#: [id number] : 1955 Acct:[id number] Age/Sex: 67 / F Adm Date: 3 Loc: Room: Type: [facility] Attending Dr: Lois Limon MD Copies to: MD Judith Garcia MD~ Date of Service: 10/04/2022 HISTORY & PHYSICAL: Patient's history with special attention to the cardiovascular, pulmonary systems and the current problem was reviewed with the patient immediately prior to the procedure. Present medications and doses reviewed in the EMR. Allergies and pertinent laboratory tests were also reviewedat this time in the EMR. The physical examination, as below, was then performed. Indication, assessment and HPI: 67-year-old female here for colonoscopy for evaluation of etiologies of positive Cologuard Family history of GI malignancy? No PHYSICAL EXAMINATION Mouth and Pharynx : Moist mucus membranes, normal dentition Cardiac: Regular rate, regular rhythm Pulmonary: Clear to auscultation bilaterally, no wheezing Neurological: Alert and oriented x3, no focal deficits noted Abdomen: Abdomen soft, non-tender REVIEW OF SYSTEMS Constitutional: Denies malaise, fevers Cardiovascular: Denies chest pain, palpitations Respiratory: Denies shortness of breath, wheezing Gastrointestinal: Per HPI Genitourinary: Denies dysuria, polyuria Musculoskeletal: Denies joint swelling, joint stiffness Neurological: Denies numbness, tingling Integumentary: Denies rashes, skin lesions Endocrine: Denies fatigue, weight loss Written informed consent obtained from the patient. Risks (including but not limited to perforation, infection, bloating, bleeding, need for emergent surgeryand loss of life), benefits and alternatives explained and questions answered. The patient verbalized understanding. Based on history patient is an appropriate candidate for the procedure. Lois Limon M.D. Documented By: Lois Limon MD 10/04/22 105 Signed By: <Electronically signed by Lois Limon MD> 10/04/22 105 [facility] Work Phone: History general Narrative - Reported Note Date & Type Note Facility History general Narrative - Reported Type Medical History Anxiety and depression Medical History Restless leg syndrome Medical History Essential (primary) hypertension Medical History Cervical radiculopathy Medical History Elevated fasting glucose Medical History Erythrasma Medical History INCREASED SERUM LIPIDS Surgical History CHOLECYSTECTOMY 1999 Surgical History C SECTIONS X3 1977, 1982, 198 8 Surgical History CTR BILATERALLY Surgical History TRIGGER FINGER RELEASE Surgical History NECK SURGERY Surgical History HYSTERECTOMY COMPLETE Hospitalization History SEE SURGICAL HX [employer] Other Hospital Discharge instructions Note Date & Type Note Facility Hospital Discharge instructions Additional Instructions DISCHARGE INSTRUCTIONS FOR COLONOSCOPY WHAT TO EXPECT: - You may feel full, gassy or cramping after your procedure. In some cases, this may be from a few hours to a day. Walking may help relieve the discomfort. - If you have polyp(s) removed you may note some minor bloody discharge after your first bowel movements. - You should begin to recover from anesthesia within 1 hour of the procedure, however may feel groggy for the next 24 hours. DO's AND DON'Ts: - Call your doctor right away if you have a hard abdomen, severe pain, are passing lots of bright red blood or clots. - Call your doctor if you develop any rashes, hives or difficulty breathing. - Let your doctor know if you have not had a bowel movement by 3 days after your procedure. - If you take 81 mg aspirin for your heart it is safe to resume this medication. - If you take other blood thinner medications your doctor will instruct you when these can safely be resumed. - Do NOT drive for 24 hours. - Do NOT operate machinery such as power tools, lawn mowers, snow blowers, sewing machines, etc. for 24 hours. - Avoid alcoholic beverages and drugs for allergies, nerves, or sleep. - Do NOT stay alone. Do NOT leave your child unattended. - Do NOT make important personal or business decisions or sign any legal documents. - Eat solid foods and drink liquids in smaller amounts than usual until normal appetite returns. If you should experience an upset stomach, liquids high in sugar content (soda, Bobby-Aid, non-acid juices) are recommended. - You can resume normal activities tomorrow. FOLLOW UP & RECOMMENDATIONS: -Repeat colonoscopy based on polyp pathology -Follow up pathology -Follow up with PCP. -Office number [phone]. [facility] Work Phone: Summary Purpose Family History No Family History Records Found Relationship Condition Age at Onset Recorded Date/T edie Not Specified Malignant neoplasm of pancreas Unknown grandparent Malignant neoplasm of colon Unknown Relationship Condition Age at Onset Recorded Date/T edie Not Specified Malignant neoplasm of pancreas Unknown grandparent Malignant neoplasm of colon Unknown brother Unknown Not Specified Unknown Family history of pancreatic cancer Unkno wn Advance Directives No Advanced Directives Records Found Advance Directive Response Recorded Date/ Time Advance Directives No October 02 3 10:32am Chief Complaint and Reason for Visit Chief Complaint positive cologuard Chief Complaint Wellness Z12.31 Reason for Visit Essential (primary) hypertension Hyperlipidemia, unspecified Left trigger finger Pain of left breast Wellness examination Additional Source Comments REASON FOR VISIT (unrecogniz ed section and content) Reason Comments Memory Loss Specialty Diagnoses / Procedures Referred By Contac t Referred To Contact Neurology Diagnoses Other speech disturbances Person with feared health complaint in whom no diagnosis is made Family history of other mental and behavioral disorders Procedures ME OFFICE/OUTPATIENT [facility] Judith Antunez MD [address] [place] [address] Phone: tel: fax: Vernon Light MD [address] [place] [address] Phone: tel: fax: Referral ID Status Reason Start Date Expiration Date V isits Requested Visits Authorized [id number] Closed Consult and Treat 02/13/2024 08/11/2024 1 1 INFORMATION SOURCE (unrecogn ized section and content) DATE CREATED AUTHOR 08/11/2022 [facility] DATE CREATED AUTHOR AUTHOR'S ORGANIZ ATION 08/22/2023 [facility] DATE CREATED AUTHOR AUTHOR'S ORGANIZ ATION 08/28/2023 [facility] DATE CREATED AUTHOR AUTHOR'S ORGANIZ ATION 03/20/2024 [facility] EPIC Care Teams (unrecognized sec tion and content) Team Status: Active Member Role Status Dates Judith Antunez MD Primary Care Provider Active Team Status: Inactive Member Role Status Dates Lois Limon MD Attending Provider Active Judith Antunez MD Primary Care Provider Active Team Status: Inactive Member Role Status Dates Judith Antunez MD Primary Care Provide r, Attending Provider Active Start: July 21, 2023 End: July 21, 2023 Team Status: Active Member Role Status Dates Judith Antunez MD Primary Care Provide r, Attending Provider Active Start: July 29, 2023 Team Status: Inactive Member Role Status Dates Judith Antunez MD Primary Care Provide r, Attending Provider Active Start: August 19, 2023 End: August 19, 2023 Retail Merchandising Coordinator Relationship Specialty Start Date End Date Judith Antunez MD [address] [place] [address] PCP - General Family Medicine 07/29/23 Retail Merchandising Coordinator Relationship Specialty Start Date End Date Judiht Antunez MD [address] [place] [address] PCP - General Family Medicine 07/29/23 Goals (unrecognized section and content) Goals may be documented in a n alternate section FOR RECORDS PERTAINING TO PATIENTS WHO ARE OR HAVE BEEN ENROLLED IN A CHEMICAL DEPENDENCY/SUBSTANCEABUSE PROGRAM, SOME INFORMATION MAY BE OMITTED. This clinical summary was aggregated from multiple sources. Caution should be exercised in using it in the provision of clinical care. This summary normalizes information from multiple sources, and as a consequence, information in this document may materially change the coding, format and clinical context of patient data. In addition, data may be omitted in some cases. CLINICAL DECISIONS SHOULD BE BASED ON THE PRIMARY CLINICAL RECORDS. [facility]. provides no warranty or guarantee of the accuracy or completeness of information in this document.
[2024-03-26 12:45] LABS: Thyroid Stimulating Hormone 1.095 uIU/mL (0.358-3.740)
[2024-03-27 03:07] LABS: Vitamin B12 676 pg/mL (232-1245)
== END 2024-03-26 11:43 | disposition home or self-care (01) ==
LOC: LAB 11:43
PROVIDERS: PCP Family Medicine; Visit Provider Psychiatry & Neurology Neurology
DX: R41.3 Other amnesia (principal)
CPT/HCPCS: 36415; 82607; 82746; 84443

== ENCOUNTER 2024-04-20 08:39 | Outpatient (OUT) | payer BC, SELFPAY ==
--- NOTE | 2024-04-20 08:43 | MR_ITS ---
The [address] [address] Patient Name: ADRIANA BISHOP MRN: [id number] date: 1955 Sex: F Assigned Patient Location: MRI Current Patient Location: MRI Accession/Order Number: [id number] Exam Date: 04/20/2024 09:00 Report Date: 04/20/2024 13:47 At the request of: INDER BEGUM Procedure: MR head/brain wo con EXAMINATION: MR head/brain wo con HISTORY: Memory Loss COMPARISON: No relevant comparison available. TECHNIQUE: A variety of imaging planes and parameters were utilized for visualization of suspected pathology. Images were performed without contrast. FINDINGS: CEREBRUM: A few small scattered mild T2 hyperintensities likely chronic small vessel ischemic changes. No edema, hemorrhage, mass, acute infarction, or inappropriate atrophy. CEREBELLUM: No edema, hemorrhage, mass, acute infarction, or inappropriate atrophy. BRAINSTEM: No edema, hemorrhage, mass, acute infarction, or inappropriate atrophy. CSF SPACES: Ventricles, cisterns, and sulci are appropriate for age. No hydrocephalus, subarachnoid hemorrhage, or mass. SKULL: No mass or other significant visible lesion. SINUSES: Limited views demonstrate no significant mucosal thickening or fluid. ORBITS: Limited views are unremarkable. OTHER: Negative. MR/MR head/brain wo con IMPRESSION: 1. No suspicious findings to account for patient's symptoms. 2. Mild age-related chronic changes. Electronically authenticated by: LYNSEY WEAVER Date: 04/20/2024 13:47
--- OUTSIDE RECORDS SUMMARY | 2024-04-20 08:47 | XMS_ITS | CCD ---
Author Organization [facility] Care Team Providers Care Packing Checker Name Role Phone Judith Antunez Unavailable DR JUDITH ANTUNEZ Admitting Unavailable TULIO, DR JUDITH Walton Attending Unavailable TULIO, DR JUDITH Walton Primary Care Unavailable MEG, DR VERNON Nunez Consulting Unavailable TULIO, DR UJDITH Walton Consulting Unavailable TULIO, DR JUDITH Walton Admitting Unavailable TULIO, DR JUDITH Walton Attending Unavailable TULIO, DR JUDITH Walton Primary Care Unavailable TULIO, DR JUDITH Walton Consulting Unavailable MD Lois Limon Attending Provider MD Judith Antunez Primary Care Provider Asaad, Imad Unavailable Asaad, Imad Admitting Unavailable Fishad, Imad Attending Unavailable Judith Antunez Primary Care Unavailable Judith Antunez Primary Care Unavailable Judith Antunez Attending Unavailable Judith Antunez Admitting Unavailable MD Judith Antunez Primary Care Provider MD Judith Antunez Attending Provider [phone] PHYSICIAN, UNKNOWN Referring Unavailable JUDITH ANTUNEZ Primary Care Unavailable RON LUIS Admitting Unavailable RON LUIS Attending Unavailable Judith Antunez MD Primary Care Provider RON LUIS Attending Unavailable BECKY LOPEZ Attending Unavailable BECKY LOPEZ Attending Unavailable INDER BEGUM Attending Unavailable JUDITH ANTUNEZ Referring Unavailable INDER BEGUM Referring Unavailable Allergies Allergy Classification Reported Allergen(s) Allergy Type Date of Onset Reaction(s) Facility (1 source) patient allergy list reviewed by nurse or physicia Propensity to adverse reactions 4 Comment:Done [employer] Other (1 source) Allergies Reconciled Propensity to adverse reactions Unknown [employer] Other Medications Current Medications Medication Drug Class(es) Dates Sig (Normalized) Sig (Original) clobetasol propionate 0.5 mg/ml topical cream (2 sources) Corticosteroid Start: 07-20-2022 Clobetasol Propionate 0.05 % 1 application Externally Twice a day for 10 days Jun, Active lisinopril 10 mg oral tablet (9 sources) Angiotensin Converting Enzyme Inhibitor Start: 07-09-2023 take 1 tablet by mouth once daily Lisinopril Active 0 .ROUTE .COMPLEX July 09, 2023 9:28am TAKE 1 TABLET BY MOUTH EVERY DAY Start: 10-04-2022 End: 07-09-2023 lisinopril 10 MG tablet .COM PLEX 07/09/2023 Active 24 hr metoprolol succinate 100 mg extended release oral tablet (9 sources) beta-Adrenergic Eric Start: 07-09-2023 take 1 tablet by mouth once daily Metoprolol Succinate Active 0 .ROUTE .COMPLEX July 09, 2023 9:28am TAKE 1 TABLET BY MOUTH EVERY DAY Start: 10-04-2022 End: 07-09-2023 take 1 tablet by mouth once daily metoprolol succinate XL (Toprol-XL) 100 MG 24 hr tablet Take 100 mg by mouth Daily 07/09/2023 Active PARoxetine hydrochloride 30 mg oral tablet (9 sources) Serotonin Reuptake Inhibitor Start: 07-09-2023 take 1 tablet by mouth once daily Paroxetine Hcl Active 0 .ROUTE .COMPLEX July 09, 2023 9:28am TAKE 1 TABLET BY MOUTH EVERY DAY Start: 10-04-2022 End: 07-09-2023 PARoxetine (Paxil) 30 MG tab let .COMPLEX 07/09/2023 Active phenylephrine hydrochloride 10 mg oral tablet (3 sources) alpha-1 Adrenergic Agonist take 1 tablet by mouth before mealtime phenylephrine (Sudafed PE) 10 MG tablet Take 10 mg by mouth in the morning. Take before meals. Active polyethylene glycol 3350 [id number] mg / potassium chloride 2970 mg / sodium bicarbonate 6740 mg / sodium chloride 5860 mg / sodium sulfate 67521 mg powder for oral solution (1 source) Osmotic Laxative Start: 08-23-19 PEG-3350/Electrolytes 236 GM as directed Orally once daily for 1 days July, Active simvastatin 40 mg oral tablet (9 sources) HMG-CoA Reductase Inhibitor Start: 07-09-19 24 [...] Onset: 05-17-2013 Episodic Disorders of lipid metabolism (7 sources) Hyperlipidemia; Translations: [Hyperlipidemia, unspecified] Onset: 05-17-2013 07-21-2023 Chronic Diverticulosis and diverticulitis (2 sources) Diverticular disease; Translations: [Diverticulosis] Chronic Essential hypertension (9 sources) Essential hypertension; Translations: [Essential (primary) hypertension] Onset: 07-22-2023 Chronic Miscellaneous mental health disorders (2 sources) Primary insomnia; Translations: [Primary insomnia] 03-16-2024 Chronic Nonmalignant breast conditions (2 sources) Mastodynia; Translations: [Pain of left breast] 07-21-2023 Episodic Osteoarthritis (4 sources) Arthritis of first carpometacarpal joint of [...] Test Name Value Interpretation Reference Range Facility ALL THYROID STIM HORMONEon 1 05-27-2023 TSH Qn 1.095 m[IU]/L [facility] MM screening mammo BI w/CADo n 08-20-2023 MM screening mammo BI w/CAD [facility] [place] [address] Mammography Report Signed Patient: Dana Snyder MR#: [id number] : 1955 Acct:[id number] Age/Sex: 68 / F ADM Date: 08/19/23 Loc: [place] Room: Type: [facility] CLI Attending Dr: Judith Antunez MD Copies to: [...] Claude Peñaloza M.D.08/20/2023 11:50 AM Dictation Location: [facility] Transcribed By: ELMER 08/20/23 1150 Dictated By: Claude Peñaloza II, MD 08/20/23 1146 Signed By: 08/20/23 1150 Normal [facility] Basophils Auto (Bld) [#/Vol] on 07-29-2023 Basophils (Bld) [#/Vol] 0.1 10 3/uL 0.0-0.1 [facility] Basophils/100 WBC Auto (Bld) on 07-29-2023 Basophils/100 WBC (Bld) 1.2 % 0.2-2.0 [facility] Cholesterol in LDL Calc [Mas s/Vol]on 07-29-2023 Cholesterol in LDL [Mass/Vol] 119.0 mg/dL [facility] Comment on above: <100 mg/dl [id number] 0-129 mg/dl NEAR OR ABOVE [id number] mg/dl BORDERLINE [id number] mg/dl HIGH>190 mg/dl VERY HIGH Cholesterol in VLDL Calc [Ma ss/Vol]on 07-29-2023 Cholesterol in VLDL [Mass/Vol] 52.6 mg/dL [facility] Eosinophils/100 WBC Auto (Bl d)on 07-29-2023 Eosinophils/100 WBC (Bld) 4.2 % 0.9-7.0 [facility] Erythrocyte distribution wid th Auto (RBC) [Ratio]on 07-29-2023 Erythrocyte distribution width (RBC) [Ratio] 11.7 % 11.0-15.0 [facility] Estimated glomerular filtrat ion rate (GFR) non- Americanon 07-29-2023 GFR/1.73 sq M.predicted among non-blacks MDRD (S/P/Bld) [Vol rate/Area] 56 mL/min/{1.73_m2} >=60 [facility] Globulin Calc (S) [Mass/Vol] on 07-29-2023 Globulin (S) [Mass/Vol] 3.7 g/dL [facility] Hematocrit Auto (Bld) [Volum e fraction]on 07-29-2023 Hematocrit (Bld) [Volume fraction] 41.7 % 36.0-48.0 [facility] Hemoglobin [Mass/volume] in Bloodon 07-29-2023 Hemoglobin (Bld) [Mass/Vol] 13.8 g/dL 12.0-16.0 [facility] Laboratory - Chemistry and C hemistry - challengeon 07-29-2023 Albumin [Mass/Vol] 3.8 g/dL 3.4-5.0 [facility] ALP [Catalytic activity/Vol] 72 U/L 46-116 [facility] ALT [Catalytic activity/Vol] 43 U/L 14-59 [facility] AST [Catalytic activity/Vol] 31 U/L 15-37 [facility] Bilirubin [Mass/Vol] 0.4 mg/dL 0.2-1.0 [facility] Calcium [Mass/Vol] 9.3 mg/dL 8.5-10.1 [facility] Chloride [Moles/Vol] 103 mmol/L 98-107 [facility] Cholesterol [Mass/Vol] 221 mg/dL <=200 [facility] Cholesterol in HDL [Mass/Vol] 50 mg/dL 40-60 [facility] Comment on above: > or =60 mg/dl - LOW CARDIOVASCULAR RISK<40 mg/dl - HIGH CARDIOVASCULAR RISK CO2 [Moles/Vol] 28.0 mmol/L 21.0-32.0 [facility] Creatinine [Mass/Vol] 0.99 mg/dL 0.55-1.02 [facility] GFR/1.73 sq M.predicted MDRD (S/P/Bld) [Vol rate/Area] mL/min/{1.73_m2} >=60 [facility] Glucose [Mass/Vol] 139 mg/dL 74-106 [facility] Potassium [Moles/Vol] 4.2 mmol/L 3.5-5.1 [facility] Protein [Mass/Vol] 7.5 g/dL 6.4-8.2 [facility] Sodium [Moles/Vol] 140 mmol/L 136-145 [facility] Triglyceride [Mass/Vol] 263 mg/dL <=150 [facility] Urea nitrogen [Mass/Vol] 19.0 mg/dL 7.0-18.0 [facility] Urea nitrogen/Creatinine [Mass ratio] 19.2 mg/mg [facility] Laboratory - Hematology and Cell countson 07-29-2023 Immature granulocytes/100 WBC (Bld) 0.2 % 0.0-0.5 [facility] Leukocytes [#/volume] correc bruce for nucleated erythrocytes in Blood by Automated counon 07-29-2023 WBC corrected for nucl RBC Auto (Bld) [#/Vol] 9.3 10 3/uL 4.0-11.0 [facility] Lymphocytes Auto (Bld) [#/Vo l]on 07-29-2023 Lymphocytes (Bld) [#/Vol] 3.8 10 3/uL 1.2-3.8 [facility] Lymphocytes/100 WBC Auto (Bl d)on 07-29-2023 Lymphocytes/100 WBC (Bld) 40.5 % 20.5-60.0 [facility] MCH Auto (RBC) [Entitic mass ]on 07-29-2023 MCH (RBC) [Entitic mass] 31.3 pg 26.7-34.0 [facility] MCHC Auto (RBC) [Mass/Vol]on 07-29-2023 MCHC (RBC) [Mass/Vol] 33.1 g/dL 29.9-35.2 [facility] MCV Auto (RBC) [Entitic vol] on 07-29-2023 MCV (RBC) [Entitic vol] 94.6 fL 81.0-99.0 [facility] Monocytes Auto (Bld) [#/Vol] on 07-29-2023 Monocytes (Bld) [#/Vol] 0.8 10 3/uL 0.3-0.8 [facility] Monocytes/100 WBC Auto (Bld) on 07-29-2023 Monocytes/100 WBC (Bld) 8.7 % 1.7-12.0 [facility] Neutrophils Auto (Bld) [#/Vo l]on 07-29-2023 Neutrophils (Bld) [#/Vol] 4.2 10 3/uL 1.4-6.5 [facility] Neutrophils/100 WBC Auto (Bl d)on 07-29-2023 Neutrophils/100 WBC (Bld) 45.2 % 43.0-75.0 [facility] No Panel Informationon 07-28 Eosinophils # (Auto) 0.4 10 3/uL 0.0-0.7 [facility] Immature Granulocyte # (Auto) 0.02 10 3/uL 0.00-0.03 [facility] Platelet mean volume Auto (B ld) [Entitic vol]on 07-29-2023 Platelet mean volume (Bld) [Entitic vol] 11.2 fL 9.5-13.5 [facility] Platelets Auto (Bld) [#/Vol] on 07-29-2023 Platelets (Bld) [#/Vol] 249 10 3/uL 150-450 [facility] RBC Auto (Bld) [#/Vol]on RBC (Bld) [#/Vol] 4.41 10 6/uL 4.20-5.40 [facility] Serum or plasma albumin/glob ulin mass ratioon 07-29-2023 Albumin/Globulin [Mass ratio] 1.0 {ratio} [facility] Serum or plasma anion gap de terminationon 07-29-2023 Anion gap [Moles/Vol] 13.2 mmol/L [facility] Serum or plasma total choles terol/high density lipoprotein (HDL) cholesterol mass bessy 07-29-2023 Cholesterol.total/Cho lesterol in HDL [Mass ratio] 4.4 {ratio} [facility] Comment on above: 3.3 - 4.4 LOW RISK4. 4 - 7.1 AVERAGE RISK7.1 - 11.0 MODERATE RISK>11.0 HIGH RISK Alex 10-04-2022 L Specimen: [id number] Received: 10/04/22 Status: ULISES [place] Num: [id number] Spec Type: Surgical Subm Dr: Lois Limon MD Tissues: A Colon Biopsy (ASCENDING POLYPS) B Colon Biopsy (BNORMAL MUCOSA SIGMOID) Procedures: MARY ANN/Yuval Wooten/Micro L4/2 Age/ Patient Sex Location Account Attending Physician Dana Snyder 67/F [id number] Lois Limon MD SPEC NUM: [id number] RECD: 10/04/22 STATUS: ULISES VARELAKathy NUM: [id number] GILMER: 10/04/22- SUBM DR: Lois Limon MD ENTERED: 10/04/22 [facility] DR: SPEC TYPE: Surgical DEPT: S ORDERED: [...] submitted in one cassette labeled B1. Specimen: [id number] Received: 10/04/22 Status: ULISES [place] Num: [id number] Spec Type: Surgical Subm Dr: Lois Limon MD Tissues: A Colon Biopsy (ASCENDING POLYPS) B Colon Biopsy (BNORMAL MUCOSA SIGMOID) Procedures: HE/4 Gross/Micro L4/2 Patient: Dana Snyder [id number] (Continued) Specimen: [id number] Received: 10/04/22 (Continued) Signed (signatur e on file) Jaden Mauro MD 10/07/22 1002 Specimen: [id number] Received: 10/04/22 Status: ULISES [place] Num: [id number] Spec Type: Surgical Subm Dr: Lois Limon MD Tissues: A Colon Biopsy (ASCENDING POLYPS) B Colon Biopsy (BNORMAL MUCOSA SIGMOID) Procedures: Gross/Micro L4/2 Patient: Dana Snyder [id number] (Continued) Specimen: [id number] Received: 10/04/22 (Continued) Microscopic Description A. Two H E slides reviewed. The microscopic examination confirms the diagnosis. B. Two H E slides reviewed. The microscopic examination confirms the diagnosis. CPT Codes 58007z5 Specimen: [id number] Received: 10/04/22 Status: ULISES [place] Num: [id number] Spec Type: Surgical Subm Dr: Lois Limon MD Tissues: A Colon Biopsy (ASCENDING POLYPS) B Colon Biopsy (BNORMAL MUCOSA SIGMOID) Procedures: HE/4, Gross/Micro L4/2 Patient: Dana Snyder [id number] (Continued) Signed (signatur e on file) Jaden Mauro MD 10/07/22 1002 Normal [facility] CBC AUTO DIFFon 08-10-2022 BASO # 0.1 103/ul Normal 0.0-0.1 [facility] Comment on above: Performed By: #### C BC #### [facility] [address] [place] [address] Dr. Mj Dorsey Basophils/100 WBC (Bld) 0.9 % Normal 0.2-2.0 [facility] Comment on above: Performed By: #### C BC #### [facility] [address] [place] [address] Dr. Mj Dorsey EO # 0.3 103/ul Normal 0.0-0.7 [facility] Comment on above: Performed By: #### C BC #### [facility] [address] [place] [address] Dr. Mj Dorsey Eosinophils/100 WBC (Bld) 3.2 % Normal 0.9-7.0 [facility] Comment on above: Performed By: #### C BC #### [facility] [address] [place] [address] Dr. Mj Dorsey Erythrocyte distribution width (RBC) [Ratio] 11.9 % Normal 11.0-15.0 [facility] Comment on above: Performed By: #### C BC #### [facility] [address] [place] [address] Dr. Mj Dorsey Hematocrit (Bld) [Volume fraction] 41.4 % Normal 36.0-48.0 [facility] Comment on above: Performed By: #### C BC #### [facility] [address] [place] [address] Dr. Mj Dorsey Hemoglobin (Bld) [Mass/Vol] 13.9 g/dL Normal 12.0-16.0 [facility] Comment on above: Performed By: #### C BC #### [facility] [address] [place] [address] Dr. Mj Dorsey IG # 0.03 10e3/ul Normal 0.00-0.03 [facility] Comment on above: Performed By: #### C BC #### [facility] [address] [place] [address] Dr. Mj Dorsey IG % 0.3 % Normal 0.0-0.5 [facility] Comment on above: Performed By: #### C BC #### [facility] [address] [place] [address] Dr. Mj Dorsey LYMPH # 4.3 103/ul Critically high 1.2-3.8 [facility] Comment on above: Performed By: #### C BC #### [facility] [address] [place] [address] Dr. Mj Dorsey Lymphocytes/100 WBC (Bld) 41.3 % Normal 20.5-60.0 [facility] Comment on above: Performed By: #### C BC #### [facility] [address] [place] [address] Dr. Mj Dorsey MANUAL DIFF REQ NO Normal [facility] Comment on above: Performed By: #### C BC #### [facility] [address] [place] [address] Dr. Mj Dorsey MCH (RBC) [Entitic mass] 31.2 pg Normal 26.7-34.0 [facility] Comment on above: Performed By: #### C BC #### [facility] [address] [place], [place] [id number] Dr. Mj Dorsey MCHC (RBC) [Mass/Vol] 33.6 g/dL Normal 29.9-35.2 [facility] Comment on above: Performed By: #### C BC #### [facility] [address] [place] [address] Dr. Mj Dorsey MCV (RBC) [Entitic vol] 92.8 fL Normal 81.0-99.0 [facility] Comment on above: Performed By: #### C BC #### [facility] [address] [place] [address] Dr. Mj Dorsey MONO # 0.8 103/ul Normal 0.3-0.8 [facility] Comment on above: Performed By: #### C BC #### [facility] [address] [place] [address] Dr. Mj Dorsey Monocytes/100 WBC (Bld) 8.0 % Normal 1.7-12.0 [facility] Comment on above: Performed By: #### C BC #### [facility] [address] [place] [address] Dr. Mj Dorsey NEUT # 4.9 103/ul Normal 1.4-6.5 [facility] Comment on above: Performed By: #### C BC #### [facility] [address] [place] [address] Dr. Mj Dorsey Neutrophils/100 WBC (Bld) 46.3 % Normal 43.0-75.0 [facility] Comment on above: Performed By: #### C BC #### [facility] [address] [place] [address] Dr. Mj Dorsey Platelet mean volume (Bld) [Entitic vol] 10.4 fL Normal 9.5-13.5 [facility] Comment on above: Performed By: #### C BC #### [facility] [address] [place] [address] Dr. Mj Dorsey PLT 328 103/ul Normal 150-450 [facility] Comment on above: Performed By: #### C BC #### [facility] [address] [place] [address] Dr. Mj Dorsey RBC 4.46 106/ul Normal 4.20-5.40 [facility] Comment on above: Performed By: #### C BC #### [facility] [address] [place] [address] Dr. Mj Dorsey WBC 10.5 103/ul Normal 4.0-11.0 [facility] Comment on above: Performed By: #### C BC #### [facility] [address] [place] [address] Dr. Mj Dorsey GLYCOHEMOGLOBIN A1Con 2022 ADA RECOMMENDATION SEE BELOW Normal [facility] Comment on above: Result Comment: ADA RECOMMENDED LIMIT 4.0 - 6.0 ADA THERAPEUTIC TARGET < 7.0 ACTION SUGGESTED > 7.0 Performed By: #### A 1C #### [facility] [address] [place] [address] Dr. Mj Dorsey Glucose [Mass/Vol] 128 mg/dL Normal [facility] Comment on above: Performed By: #### A 1C #### [facility] [address] [place] [address] Dr. Mj Dorsey HbA1c (Bld) [Mass fraction] 6.1 % Normal 4.5-6.2 [facility] Comment on above: Performed By: #### A 1C #### [facility] [address] [place] [address] Dr. Mj Dorsey LIPID PROFILEon 08-10-2022 CHOL-HDL RATIO NORM SEE BELOW Normal [facility] Comment on above: Result Comment: 3.3 - 4.4 LOW RISK 4.4 - 7.1 AVERAGE RISK 7.1 - 11.0 MODERATE RISK >11.0 HIGH RISK Performed By: #### C MP, LIPID #### [facility] [address] [place] [address] Dr. Mj Dorsey Cholesterol [Mass/Vol] 153 mg/dL Normal <=200 [facility] Comment on above: Performed By: #### C MP, LIPID #### [facility] [address] [place] [address] Dr. Mj Dorsey Cholesterol in HDL [Mass/Vol] 41 mg/dL Normal 40-60 [facility] Comment on above: Performed By: #### C MP, LIPID #### [facility] [address] [address] [address] Mj Dorsey Cholesterol in LDL [Mass/Vol] 68.8 mg/dL Normal [facility] Comment on above: Performed By: #### C MP, LIPID #### [facility] [address] [address] [address] Mj Dorsey Cholesterol.total/Cho lesterol in HDL [Mass ratio] 3.7 {ratio} Normal [facility] Comment on above: Performed By: #### C MP, LIPID #### [facility] [address] [place] [address] Dr. Mj Dorsey HDL NORMAL > or = 60 mg/dl - LOW CARDIOVASCULAR RISK <40 mg/dl - HIGH CARDIOVASCULAR RISK Normal [facility] Comment on above: Performed By: #### C MP, LIPID #### [facility] [address] [place] [address] Dr. Mj Dorsey LDL CALC NORMAL SEE BELOW Normal [facility] Comment on above: Result Comment: <100 mg/dl OPTIMAL 100 - 129 mg/dl NEAR OR ABOVE OPTIMAL 130 - 159 mg/dl BORDERLINE HIGH 160 - 189 mg/dl HIGH >190 mg/dl VERY HIGH Performed By: #### C MP, LIPID #### [facility] [address] [place] [address] Dr. Mj Dorsey Triglyceride [Mass/Vol] 216 mg/dL Critically high <=150 [facility] Comment on above: Performed By: #### C MP, LIPID #### [facility] [address] [place] [address] Dr. Mj Dorsey VLDL CALC 43.2 mg/dL Normal [facility] Comment on above: Performed By: #### C MP, LIPID #### [facility] [address] [place] [address] Dr. Mj Dorsey PROF 14(COMP METB)on 023 Albumin [Mass/Vol] 3.5 g/dL Normal 3.4-5.0 [facility] Comment on above: Performed By: #### C MP, LIPID #### [facility] [address] [address] [address] Mj Dorsey Albumin/Globulin [Mass ratio] 1.0 {ratio} Normal [facility] Comment on above: Performed By: #### C MP, LIPID #### [facility] [address] [address] [address] Mj Dorsey ALP [Catalytic activity/Vol] 65 U/L Normal 46-116 [facility] Comment on above: Performed By: #### C MP, LIPID #### [facility] [address] [address] [address] Mj Dorsey ALT [Catalytic activity/Vol] 41 U/L Normal 14-59 [facility] Comment on above: Performed By: #### C MP, LIPID #### [facility] [address] [place] [address] Dr. Mj Dorsey Anion gap [Moles/Vol] 14.3 mmol/L Normal [facility] Comment on above: Performed By: #### C MP, LIPID #### [facility] [address] [place] [address] Dr. Mj Dorsey AST [Catalytic activity/Vol] 18 U/L Normal 15-37 [facility] Comment on above: Performed By: #### C MP, LIPID #### [facility] [address] [place] [address] Dr. Mj Dorsey Bilirubin [Mass/Vol] 0.3 mg/dL Normal 0.2-1.0 [facility] Comment on above: Performed By: #### C MP, LIPID #### [facility] [address] [place] [address] Dr. Mj Dorsey Calcium [Mass/Vol] 8.7 mg/dL Normal 8.5-10.1 [facility] Comment on above: Performed By: #### C MP, LIPID #### [facility] [address] [place] [address] Dr. Mj Dorsey Chloride [Moles/Vol] 108 mmol/L Critically high 98-107 [facility] Comment on above: Performed By: #### C MP, LIPID #### [facility] [address] [address] [address] Mj Dorsey CO2 [Moles/Vol] 30.5 mmol/L Normal 21.0-32.0 [facility] Comment on above: Performed By: #### C MP, LIPID #### [facility] [address] [address] [address] Mj Dorsey Creatinine [Mass/Vol] 0.93 mg/dL Normal 0.55-1.02 [facility] Comment on above: Performed By: #### C MP, LIPID #### [facility] [address] [address] [address] Mj Dorsey EGFR-AF ENGLISH >60 Normal >=60 [facility] Comment on above: Performed By: #### C MP, LIPID #### [facility] [address] [place] [address] Dr. Mj Dorsey EGFR-NON AF ENGLISH >60 Normal >=60 [facility] Comment on above: Performed By: #### C MP, LIPID #### [facility] [address] [place] [address] Dr. Mj Dorsey Globulin (S) [Mass/Vol] 3.6 g/dL Normal [facility] Comment on above: Performed By: #### C MP, LIPID #### [facility] [address] [place] [address] Dr. Mj Dorsey Glucose [Mass/Vol] 121 mg/dL Critically high 74-106 [facility] Comment on above: Performed By: #### C MP, LIPID #### [facility] [address] [address] [address] Mj Dorsey Potassium [Moles/Vol] 4.8 mmol/L Normal 3.5-5.1 [facility] [facility] Comment on above: Performed By: #### C MP, LIPID #### [facility] [address] [address] [address] Mj Dorsey Protein [Mass/Vol] 7.1 g/dL Normal 6.4-8.2 [facility] Comment on above: Performed By: #### C MP, LIPID #### [facility] [address] [address] [address] Mj Dorsey Sodium [Moles/Vol] 148 mmol/L Critically high 136-145 [facility] Comment on above: Performed By: #### C MP, LIPID #### [facility] [address] [address] [address] Mj Dorsey Urea nitrogen [Mass/Vol] 14.0 mg/dL Normal 7.0-18.0 [facility] Comment on above: Performed By: #### C MP, LIPID #### [facility] [address] [address] [address] Mj Dorsey Urea nitrogen/Creatinine [Mass ratio] 15.1 mg/mg Normal [facility] Comment on above: Performed By: #### C MP, LIPID #### [facility] [address] [address] [address] Mj Dorsey MG MAMM SCREEN 3D EVY CADon 10-23-2021 MG MAMM SCREEN 3D EVY CAD Patient: DANA SNYDER Exam Date: 10/23/2021 : 1955 Gender:F Ordering : DR JUDITH ANTUNEZ M.D. Admission #: [id number] Family : Order #: [id number] CLICK HERE TO VIEW EXAM RADIOLOGY REPORT [...] Treatments None Family Cancers None LOCATION: [facility] BREAST COMPOSITION: Scattered areas fibroglandular density. FINDINGS: [...] LUMP SHOULD BE BIOPSIED. Dictated by: Vernon Parks M.D. on 10/24/2021 at 10:38 Approved by: Vernon Parks M.D. on 10/24/2021 at 12:08 Normal [facility] Vital Signs Date Time Vital Sign Value Performing Clinician Facility 03-16-2024 15:33-0500 Body height 154.9 cm Inder Kel DO Work Phone: [facility] 03-16-2024 15:33-0500 Body mass index (BMI) [Ratio] 37.98 kg/m2 Inder Kel DO Work Phone: [facility] 03-16-2024 15:33-0500 Body weight 91.17 kg Inder Kel DO Work Phone: [facility] 03-16-2024 15:33-0500 Diastolic blood pressure 89 mm[Hg] Inder Kel DO Work Phone: [facility] 03-16-2024 15:33-0500 Heart rate 76 /min Inder Kel DO Work Phone: [facility] 03-16-2024 15:33-0500 Systolic blood pressure 167 mm[Hg] Inder Kel DO Work Phone: [facility] 07-21-2023 15:34-0400 Body height 154.94 cm MD Judith Antunez Work Phone: [facility] 07-21-2023 15:34-0400 Body mass index (BMI) [Ratio] 37.6 kg/m2 MD Judith Antunez Work Phone: [facility] 07-21-2023 15:34-0400 Body weight 90.32 kg MD Judith Antunez Work Phone: [facility] 07-21-2023 15:34-0400 Diastolic blood pressure 82 mm[Hg] MD Judith Antunez Work Phone: [facility] 07-21-2023 15:34-0400 Heart rate 66 /min MD Judith Antunez Work Phone: [facility] 07-21-2023 15:34-0400 Systolic blood pressure 141 mm[Hg] MD Judith Antunez Work Phone: [facility] 10-04-2022 11:32-0400 Diastolic blood pressure 95 mm[Hg] MD Judith Antunez Work Phone: [facility] 10-04-2022 11:32-0400 Heart rate 60 /min MD Judith Antunez Work Phone: [facility] 10-04-2022 11:32-0400 Respiratory rate 16 /min MD Judith Antunez Work Phone: [facility] 10-04-2022 11:32-0400 SaO2% (BldA) [Mass fraction] 93 % MD Judith Antunez Work Phone: [facility] 10-04-2022 11:32-0400 Systolic blood pressure 129 mm[Hg] MD Judith Antunez Work Phone: [facility] 10-04-2022 10:06-0400 Body height 154.94 cm MD Judith Antunez Work Phone: [facility] 10-04-2022 10:06-0400 Body temperature 98.8 [degF] MD Judith Antunez Work Phone: [facility] 10-04-2022 10:06-0400 Body weight 85.72 kg MD Judith Antunez Work Phone: [facility] 07-18-2022 16:15-0400 Body height 153.67 cm Judith Antunez Other [facility] [employer] Other 07-18-2022 16:15-0400 Body mass index (BMI) [Ratio] 36.3 kg/m2 Judith Antunez Other [employer] [facility] [employer] Other 07-18-2022 16:15-0400 Body weight 85.73 kg Judith Antunez Other [employer] [facility] [employer] Other 07-18-2022 16:15-0400 Diastolic blood pressure 80 mm[Hg] Judith Antunez Other [employer] Other 07-18-2022 16:15-0400 SaO2% (BldA) [Mass fraction] 97 % Judith Antunez Other [employer] Other 07-18-2022 16:15-0400 Systolic blood pressure 126 mm[Hg] Judith Tulio Other [employer] Other Encounters Encounter Date Encounter Type Care Provider Facility Start: 2024 End: 2024 ambulatory INDER KEL Not Available Start: 03-26-2024 End: 03-26-2024 Clinisync Result Encounter Inder Kel DO Work Phone: [facility] Unsolicited Start: 03-26-2024 End: 03-26-2024 Clinisync Result Encounter Inder Kel DO Work Phone: [facility] External [facility] Unsolicited Start: 03-16-2024 End: 03-16-2024 Office consultation new/estab patient 60 min Inder Kel DO Work Phone: [employer] [facility] Comment on above: Memory loss (Primary Dx); Word finding difficulty; Primary insomnia; TIMOTEO (obstructive sleep apnea) Start: 03-16-2024 End: 03-16-2024 ambulatory INDER KEL Not Available Start: 03-16-2024 End: 03-16-2024 Bamboo flowsheet Inder Kel DO Work Phone: [employer] [facility] Start: 03-16-2024 End: 03-16-2024 Bamboo flowsheet Inder Kel DO Work Phone: [employer] [facility] Start: 10-06-2023 End: 10-06-2023 ambulatory BECKY B APLING Not Available Start: 09-08-2023 End: 09-08-2023 ambulatory BECKY B APLING Not Available Start: 08-27-2023 End: 08-27-2023 Evaluation and management of inpatient RON Aviles [facility] Start: 08-26-2023 End: 08-26-2023 ambulatory [facility] Start: 08-19-2023 End: 08-19-2023 ambulatory Judith Antunez Facility:[facility] Start: 08-19-2023 End: 08-19-2023 ambulatory MD Judith Antunez Work Phone: [facility] Work Phone: Start: 08-19-2023 End: 08-19-2023 Patient encounter procedure MD Judith Antunez Work Phone: [facility] Work Phone: Start: 07-29-2023 End: 07-29-2023 ambulatory RON Aviles JANELLE Not Available Start: 07-29-2023 Non-patient / Non-visit MD Raquel Antunez Work Phone: [facility] [employer] Work Phone: Start: 07-21-2023 Patient encounter status MD Judith Antunez Work Phone: [facility] Start: 07-21-2023 End: 07-21-2023 Encounter for general adult medical examination without abnormal findings MD Judith Antunez Work Phone: [facility] Start: 07-21-2023 End: 07-21-2023 Patient encounter procedure MD Judith Antunez Work Phone: [facility] Work Phone: Start: 11-04-2022 End: 11-04-2022 ambulatory Imad Asaad Other [facility] [employer] Other Start: 11-04-2022 Telephone encounter Imad Asaad [employer] Start: 10-04-2022 End: 10-04-2022 ambulatory Imad Asaad Facility:[facility] Start: 10-04-2022 End: 10-04-2022 Admission to same day surgery center MD Judith Antunez Work Phone: [facility] Work Phone: Start: 10-04-2022 End: 10-04-2022 ambulatory MD uJdith Antunez Work Phone: [facility] Work Phone: Start: 08-10-2022 End: 08-11-[address] JUDITH ANTUNEZ Facility:[facility] Start: 07-18-2022 End: 07-18-2022 ambulatory Judith Antunez Other [employer] Other Start: 07-18-2022 Encounter for genera l adult medical examination without abnormal findings Judith Antunez [facility] Start: 07-18-2022 Periodic preventive med est patient 40-64yrs Judith Antunez [facility] Start: 10-23-2021 End: 10-24-[address] JUDITH ANTUNEZ Facility:[facility] Start: 05-17-2019 Adult health examination Imad Asaad Other [employer] Other Start: 05-17-2019 Problem, abnormal examination Imad Asaad Other [employer] Other Procedures Date Procedure Procedure Detail Performing Clinician Start: 03-26-2024 ALL THYROID STIM HORMONE Inder Begum DO Work Phone: Start: 10-04-2022 Colonoscopy MD Judith Antunez Work Phone: Start: 05-02-2016 Screening mammography I mad Asaad Other Pre-surgery evaluation Pat Antunez Other Screening for malign ant neoplasm of breast Imad Asaad Other Screening for malign ant neoplasm of colon Judith Antunez Other Plan of Treatment Date Care Activity Detail Author Start: 05-12-2024 End: 05-12-2024 Patient encounter procedure 05/12/2024 2:45 PM EST Office Visit [facility] [address] [place] [phone] Inder Begum DO [address] [place] [address] [facility] Start: 03-16-2024 End: 03-16-2024 Patient encounter procedure 03/16/2024 4:00 PM EST Office Visit [facility] [address] [place] [phone] Kel, DO Inder [address] [place] [address] Arrived [facility] Comment on above: Arrived Start: 03-16-2024 End: 03-16-2025 Cobalamin (Vitamin B12) [Mass/volume] in Serum or Plasma Vitamin B12 Lab Routine Memory loss Expected: 03/16/2024 (Approximate), Expires: 03/16/2025 [facility] Comment on above: Expected: 03/16/2024 (Approximate), Expires: 03/16/2025 Start: 03-16-2024 End: 03-16-2025 EEG awake or drowsy EEG awake or drowsy Neurology Routine Memory loss Expected: 03/16/2024 (Approximate), Expires: 03/16/2025 [facility] Work Phone: Comment on above: Expected: 03/16/2024 (Approximate), Expires: 03/16/2025 Start: 03-16-2024 End: 03-16-2025 Folate [Mass/volume] in Serum or Plasma Folate Lab Routine Memory loss Expected: 03/16/2024 (Approximate), Expires: 03/16/2025 [facility] Comment on above: Expected: 03/16/2024 (Approximate), Expires: 03/16/2025 Start: 03-16-2024 End: 03-16-2025 MR Brain WO contrast MR brain wo contrast Imaging Routine Memory loss Expected: 03/16/2024, Expires: 03/16/2025 [facility] Comment on above: Expected: 03/16/2024 , Expires: 03/16/2025 Start: 03-16-2024 End: 03-16-2025 Thyrotropin [Units/volume] in Serum or Plasma TSH Lab Routine Memory loss Expected: 03/16/2024 (Approximate), Expires: 03/16/2025 [facility] Comment on above: Expected: 03/16/2024 (Approximate), Expires: 03/16/2025 Start: 11-30-2023 Influenza vaccination Influenza Vacc ine (#1) [facility] Start: 08-19-2023 Screening mammograph y of bilateral breasts MM screening mammo BI w/CAD [facility] Start: 10-04-2022 [facility] Start: 2022 Pneumococcal Vaccine : 65+ Years (1 of 1 - PCV) Pneumococcal Vaccine: 65+ Years (1 of 1 - PCV) [facility] Start: 1997 Screening for malign ant neoplasm of breast Mammogram [facility] Start: 1955 Screening for malign ant neoplasm of colon [facility] Comprehensive metabo lic 2000 panel - Serum or Plasma [facility] Patient Education Colon polyps H emorrhoids (DC) Diverticulosis (DC) [facility] Work Phone: Immunizations Immunization Date Immunization Notes Care Provider Mikayla bennett 01-06-2023 Influenza, Seasonal, Quadrivalent, Adjuvanted Inder Begum DO Work Phone: [facility] 01-06-2023 influenza virus vaccine, unspecified formulation Inder Kel DO Work Phone: [facility] 12-26-2021 influenza virus vaccine, split virus (incl. purified surface antigen) Imad Asaad Other [employer] Other 12-26-2021 influenza virus vaccine, unspecified formulation MD Judith Antunez Work Phone: [facility] 12-26-2021 influenza, injectabl e, quadrivalent, preservative free Inder Kel DO Work Phone: [facility] 03-14-2021 COVID-19 Vaccine Pfi zer - Documentation Purposes Only Imad Asaad Other [facility] 03-14-2021 influenza virus vaccine, split virus (incl. purified surface antigen) Imad Asaad Other [facility] Other 03-14-2021 influenza virus vaccine, unspecified formulation MD Judith Antunez Work Phone: [facility] 03-14-2021 Influenza, injectabl e, Madin [place] Canine Kidney, preservative free, quadrivalent Inder Kel DO Work Phone: [facility] 07-20-2020 COVID-19 Vaccine Pfi zer - Documentation Purposes Only Imad Asaad Other [facility] 06-29-2020 COVID-19 Vaccine Pfi zer - Documentation Purposes Only Imad Asaad Other [facility] 02-10-2020 influenza virus vaccine, split virus (incl. purified surface antigen) Imad Asaad Other [facility] Other 02-10-2020 influenza virus vaccine, unspecified formulation MD Judith Antunez Work Phone: [facility] 02-10-2020 influenza, injectabl e, quadrivalent, contains preservative Inder Kel DO Work Phone: [facility] 01-12-2019 influenza, injectabl e, quadrivalent, preservative free Inder Kel DO Work Phone: [facility] 12-30-2017 influenza, live, intranasal, quadrivalent Inder Kel DO Work Phone: [facility] 12-01-2017 influenza virus vaccine, split virus (incl. purified surface antigen) Imad Asaad Other [facility] Other 12-01-2017 influenza virus vaccine, unspecified formulation MD Judith Antunez Work Phone: [facility] 12-01-2017 influenza, injectabl e, quadrivalent, preservative free Inder Kel DO Work Phone: [facility] 12-23-2016 influenza, injectabl e, quadrivalent, preservative free Inder Kel DO Work Phone: [facility] 12-23-2016 tetanus and diphther ia toxoids, adsorbed, preservative free, for adult use (5 Lf of tetanus toxoid and 2 Lf of diphtheria toxoid) Imad Asaad Other [facility] 01-25-2016 tetanus and diphther ia toxoids, adsorbed, preservative free, for adult use (5 Lf of tetanus toxoid and 2 Lf of diphtheria toxoid) Imad Asaad Other [facility] Payers Date Payer Category Payer Self-pay 2021 [facility] [id number] 1959 [facility] [employer]KAN [id number] 1955 Unknown [id number]. [id number] 1955 Unknown [id number] [id number]. 2.593 1955 Unknown [id number] [id number]. 2.1286 1955 Unknown [id number] [id number]. 2.1286 1955 Unknown [id number] [id number]. 2.1259 1955 Unknown [id number] [id number]. 2.1259 1955 Unknown [id number] [id number]. 2.1259 1955 Unknown [id number] [id number]. 2.1259 1955 Unknown [id number] [id number]. 2.1259 Unknown [id number] [id number]. 2.531 Unknown [id number]. 2.531 Social History Date Type Detail Facility Unknown if ever smoked [facility] Other Start: 10-06-2023 End: 03-16-2024 Sex Assigned At [facility] Other Start: 10-04-2022 End: 03-16-2024 Tobacco smoking status NHIS Ex-smoker (finding) [facility] Start: 1955 Sex Assigned At Female [facility] Start: 03-31-1999 End: 03-31-2004 History of tobacco use Current smoker [facility] Start: 03-31-1999 End: 03-31-2004 History of tobacco use Cigarette Smoker [facility] Start: 07-29-2023 End: 03-16-2024 Cigarettes smoked current (pack per day) - Reported 0.5 [facility] Start: 07-29-2023 End: 03-16-2024 Tobacco use and exposure Smokeless tobacco non-user [facility] Start: 10-06-2023 End: 03-16-2024 Alcoholic beverage intake Ex-drinker (finding) [facility] Start: 07-28-2023 Gender identity Identifies as female gender (finding) [facility] Start: 07-28-2023 Sexual orientation Heterosexual (finding) [facility] Goals Date Patient Goal Desired Activity /State History of Present illness Narrative 03-16-2024 Inder Begum DO - 03/16/2024 4:00 PM EST Note Date & Type Note Facility 03-16-2024 History of Presen t illness Narrative Images from the original note were not included. Chief Complaint Patient presents with Memory Loss Subjective Word-finding difficulty, family history of dementia - labs @ [facility] [place]; referral received from Dr Judith Antunez MD [...] find the words. 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 She states she can get lost and forget where she at while she is playing. Not enough that she has been asked not to play. She can look at her computer at work and forget what she is doing. It does coma back to her. 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 She [...] She will take a nap Friday after Confucianism and she feels better. She will sleep [...] clinic: 2 months documented in this encounter [facility] Procedure note 10-04-2022 Note Date & Type Note Facility 10-04-2022 Procedure note [facility] Evaluation note 07-18-2022 Note Date & Type [...] L20.82) Start new med - steroid cream. [employer] Other Evaluation note 05-17-2013 Note Date & Type Note Facility 05-17-2013 Evaluation note Diagnosis Onset Date Essential (primary) hypertension acute Hyperlipidemia, unspecified May 17, 2013 acute Left trigger finger acute Pain of left breast acute Wellness examination acute [facility] Work Phone: Evaluation note Note Date & Type Note Facility Evaluation note No assessment information availa [facility] Work Phone: Evaluation note Note Date & Type Note Facility Evaluation note No Information [facility] [employer] Other Evaluation note Note Date & Type Note Facility Evaluation note Diagnosis Memory loss- Primary Word finding difficulty Primary insomnia Persistent disorder of initiating or maintaining sleep TIMOTEO (obstructive sleep apnea) Obstructive sleep apnea (adult) (pediatric) documented in this encounter [facility] History and physical note Note Date & Type Note Facility History and physical note Note Date/Time October 04, 2022 10:57 am [facility] [address] [place] [address] Gastroenterology H&P Signed Patient: Dana Snyder MR#: [id number] : 1955 Acct:[id number] Age/Sex: 67 / F Adm Date: 3 Loc: Room: Type: [facility] Attending Dr: Lois Limon MD Copies to: [...] Limon M.D. Documented By: Lois Limon MD 10/04/221056 Signed By: <Electronically signed by Lois Limon MD> 10/04/221056 [facility] Work Phone: History general Narrative - Reported Note Date & Type Note Facility History general Narrative - Reported Type Medical History Anxiety and depression Medical History Restless leg syndrome Medical History Essential (primary) hypertension Medical History Cervical radiculopathy Medical History Elevated fasting glucose Medical History Erythrasma Medical History INCREASED SERUM LIPIDS Surgical History CHOLECYSTECTOMY 1998 Surgical History C SECTIONS X3 1977, 1982, 198 8 Surgical History CTR BILATERALLY Surgical History TRIGGER FINGER RELEASE Surgical History NECK SURGERY Surgical History HYSTERECTOMY COMPLETE Hospitalization History SEE SURGICAL HX [employer] Other Hospital Discharge instructions Note Date & [...] pathology -Follow up with PCP. -Office number [phone]. [facility] Work Phone: Summary Purpose Family History No [...] Date/ Time Advance Directives No October 02 10:32am Chief Complaint and Reason for Visit [...] of other mental and behavioral disorders Procedures [place] OFFICE/OUTPATIENT [facility] Judith Antunez MD [address] [place] [address] Phone: tel: fax: Vernon Light MD [address] [place] [address] Phone: tel: fax: Referral ID Status Reason Start Date Expiration Date V isits Requested Visits Authorized [id number] Closed Consult and Treat 02/13/2024 08/11/2024 1 1 INFORMATION SOURCE (unrecogn ized section and content) DATE CREATED AUTHOR 08/11/2022 [facility]wa DATE CREATED AUTHOR AUTHOR'S ORGANIZ ATION 08/22/2023 [facility] DATE CREATED AUTHOR AUTHOR'S ORGANIZ ATION 08/28/2023 [facility] DATE CREATED AUTHOR AUTHOR'S ORGANIZ ATION 04/11/2024 [facility] EPIC Care Teams [...] August 19, 2023 End: August 19, 2023 Packing Checker Relationship Specialty Start Date End Date Judith Antunez MD [address] [place] [place] [phone] PCP - General Family Medicine 07/29/23 Packing Checker Relationship Specialty Start Date End Date Judith Antunez MD [address] [place] [place] [phone] PCP - [facility] 07/29/23 Packing Checker Relationship Specialty Start Date End Date Judith Antunez MD [address] [place] [address] PCP - General Family Medicine 07/29/23 Goals [...] BE BASED ON THE PRIMARY CLINICAL RECORDS. [employer] [facility]. provides no warranty or guarantee of the accuracy or completeness of information in this document.
== END 2024-04-20 08:40 | disposition home or self-care (01) ==
LOC: MRI 08:39
PROVIDERS: PCP Family Medicine; Visit Provider Psychiatry & Neurology Neurology
DX: R41.3 Other amnesia (principal)
CPT/HCPCS: 70551

== ENCOUNTER 2024-04-29 08:36 | Outpatient (OUT) | payer BC, SELFPAY ==
--- NOTE | 2024-04-29 08:38 | CT_ITS ---
[address] [address] Patient Name: ADRIANA BISHOP MRN: [id number] date: 1955 Sex: F Assigned Patient Location: CT Current Patient Location: CT Accession/Order Number: [id number] Exam Date: 04/29/2024 08:42 Report Date: 04/29/2024 13:49 At the request of: CHYNA ANTUNEZ Procedure: CT abdomen pelvis wo con EXAMINATION: CT abdomen pelvis wo con HISTORY: Acute Right Flank Pain COMPARISON: No relevant comparison available. TECHNIQUE: Axial, Coronal, and Sagittal images were obtained without and/or with IV contrast as indicated by examination type. Dose reduction techniques were achieved by using automated exposure control and/or adjustment of mA and/or kV according to patient size and/or use of iterative reconstruction technique. FINDINGS: LUNG BASES: No visible pulmonary or pleural disease. LIVER: No enlargement, atrophy, suspicious density, or significant focal lesion. BILIARY: Cholecystectomy. PANCREAS: No lesion, fluid collection, or abnormal duct dilatation. SPLEEN: No enlargement or focal lesion. ADRENALS: No mass or enlargement. KIDNEYS: No mass, obstruction, or calcification. BOWEL/MESENTERY: Numerous small diverticula involving the distal descending and sigmoid colon without acute inflammatory changes. No visible mass, obstruction, or bowel wall thickening. Normal appendix. AORTA/VASCULAR: No aneurysm or dissection. RETROPERITONEUM: No mass or adenopathy. LYMPH NODES: No adenopathy. URINARY BLADDER: No visible focal wall thickening, lesion, or calculus. PELVIC ORGANS: Hysterectomy. ABDOMINAL WALL: No mass or hernia. BONES: Mild grade 1 anterolisthesis of L4 on 5 and multilevel mild degenerative disc disease and facet arthropathy. OTHER: Negative. CT/CT abdomen pelvis wo con IMPRESSION: 1. No acute or suspicious findings to account for patient's symptoms. 2. Colonic diverticulosis. 3. Mild degenerative changes of lumbar spine. Electronically authenticated by: LYNSEY WEAVER Date: 04/29/2024 13:49
--- OUTSIDE RECORDS SUMMARY | 2024-04-29 08:39 | XMS_ITS | CCD ---
Author Organization [facility] Care Team Providers Care Member Services Representative Name Role Phone Judith Antunez Unavailable DR [...] Consulting Unavailable MD Lois Limon Attending Provider [phone] MD Judith Antunez Primary Care Provider Asaad, Imad Unavailable Asaad, Imad Admitting Unavailable Fishad, Imad Attending Unavailable Judith Antunez Primary Care Unavailable Judith Antunez Primary Care Unavailable Judith Antunez Attending Unavailable Judith Antunez Admitting Unavailable MD Judith Antunez Primary Care Provider MD Judith Antunez Attending Provider PHYSICIAN, UNKNOWN Referring Unavailable JUDITH ANTUNEZ Primary Care Unavailable RON LUIS Admitting Unavailable RON LUIS Attending Unavailable Judith nAtunez MD Primary Care Provider RON LUIS Attending Unavailable BECKY LOPEZ Attending Unavailable BECKY LOPEZ Attending Unavailable INDER BEGUM Attending Unavailable JUDITH ANTUNEZ Referring Unavailable INDER BEGUM Referring Unavailable Allergies Allergy Classification Reported Allergen(s) Allergy Type Date of Onset Reaction(s) Facility (1 source) patient allergy list reviewed by nurse or physicia Propensity to adverse reactions 4 Comment:Done [facility] Other (1 source) Allergies Reconciled Propensity to adverse reactions Unknown [facility] Other Medications Current Medications Medication Drug Class(es) [...] Take before meals. Active polyethylene glycol [id number] [id number] mg / potassium chloride 2970 mg / sodium bicarbonate 6740 mg / sodium chloride 5860 mg / sodium sulfate 00495 mg powder for oral solution (1 source) [...] HORMONEon 1 05-27-2023 TSH Qn 1.095 m[IU]/L [facility] MM screening mammo BI w/CADo n 08-20-2023 MM screening mammo BI w/CAD [facility] [place] [address] Mammography Report Signed Patient: Dana Snyder MR#: [id number] : 1955 Acct:[id number] Age/Sex: 68 / F ADM Date: 08/19/23 Loc: PA Room: Type: [facility] CLI Attending Dr: Judith Antunez MD Copies [...] Claude Peñaloza M.D.08/20/2023 11:50 AM Dictation Location: [facility] Transcribed By: ELMER 08/20/23 1150 Dictated By: Claude Peñaloza II, MD 08/20/23 1146 Signed By: 08/20/23 1150 Normal [facility] Basophils Auto (Bld) [#/Vol] on 07-29-2023 Basophils (Bld) [#/Vol] 0.1 10 3/uL 0.0-0.1 [facility] Basophils/100 WBC Auto (Bld) on 07-29-2023 Basophils/100 WBC (Bld) 1.2 % 0.2-2.0 [facility] Cholesterol in LDL Calc [Mas s/Vol]on 07-29-2023 Cholesterol in LDL [Mass/Vol] 119.0 mg/dL [facility] Comment on above: <100 mg/dl [id number] 0-129 mg/dl NEAR OR ABOVE [id number] mg/dl BORDERLINE [id number] mg/dl HIGH>190 mg/dl VERY HIGH Cholesterol in VLDL Calc [Ma ss/Vol]on 07-29-2023 Cholesterol in VLDL [Mass/Vol] 52.6 mg/dL [facility] Eosinophils/100 WBC Auto (Bl d)on 07-29-2023 Eosinophils/100 WBC (Bld) 4.2 % 0.9-7.0 [facility] Erythrocyte distribution wid th Auto (RBC) [Ratio]on 07-29-2023 Erythrocyte distribution width (RBC) [Ratio] 11.7 % 11.0-15.0 [facility] Estimated glomerular filtrat ion rate (GFR) non- Americanon 07-29-2023 GFR/1.73 sq M.predicted among non-blacks MDRD (S/P/Bld) [Vol rate/Area] 56 mL/min/{1.73_m2} >=60 [facility] Globulin Calc (S) [Mass/Vol] on 07-29-2023 Globulin (S) [Mass/Vol] 3.7 g/dL [facility] Hematocrit Auto (Bld) [Volum e fraction]on 07-29-2023 Hematocrit (Bld) [Volume fraction] 41.7 % 36.0-48.0 [facility] Hemoglobin [Mass/volume] in Bloodon 07-29-2023 Hemoglobin (Bld) [Mass/Vol] 13.8 g/dL 12.0-16.0 [facility] Laboratory - Chemistry and C hemistry - challengeon 07-29-2023 Albumin [Mass/Vol] 3.8 g/dL 3.4-5.0 [facility] ALP [Catalytic activity/Vol] 72 U/L 46-116 [facility] ALT [Catalytic activity/Vol] 43 U/L 14-59 [facility] AST [Catalytic activity/Vol] 31 U/L 15-37 [facility] Bilirubin [Mass/Vol] 0.4 mg/dL 0.2-1.0 [facility] Calcium [Mass/Vol] 9.3 mg/dL 8.5-10.1 [facility] Chloride [Moles/Vol] 103 mmol/L 98-107 [facility] Cholesterol [Mass/Vol] 221 mg/dL <=200 [facility] Cholesterol in HDL [Mass/Vol] 50 mg/dL 40-60 [facility] Comment on above: > or =60 mg/dl - LOW CARDIOVASCULAR RISK<40 mg/dl - HIGH CARDIOVASCULAR RISK CO2 [Moles/Vol] 28.0 mmol/L 21.0-32.0 [facility] Creatinine [Mass/Vol] 0.99 mg/dL 0.55-1.02 [facility] GFR/1.73 sq M.predicted MDRD (S/P/Bld) [Vol rate/Area] mL/min/{1.73_m2} >=60 [facility] Glucose [Mass/Vol] 139 mg/dL 74-106 [facility] Potassium [Moles/Vol] 4.2 mmol/L 3.5-5.1 [facility] Protein [Mass/Vol] 7.5 g/dL 6.4-8.2 [facility] Sodium [Moles/Vol] 140 mmol/L 136-145 [facility] Triglyceride [Mass/Vol] 263 mg/dL <=150 [facility] Urea nitrogen [Mass/Vol] 19.0 mg/dL 7.0-18.0 [facility] Urea nitrogen/Creatinine [Mass ratio] 19.2 mg/mg [facility] Laboratory - Hematology and Cell countson 07-29-2023 Immature granulocytes/100 WBC (Bld) 0.2 % 0.0-0.5 [facility] Leukocytes [#/volume] correc bruce for nucleated erythrocytes in Blood by Automated counon 07-29-2023 WBC corrected for nucl RBC Auto (Bld) [#/Vol] 9.3 10 3/uL 4.0-11.0 [facility] Lymphocytes Auto (Bld) [#/Vo l]on 07-29-2023 Lymphocytes (Bld) [#/Vol] 3.8 10 3/uL 1.2-3.8 [facility] Lymphocytes/100 WBC Auto (Bl d)on 07-29-2023 Lymphocytes/100 WBC (Bld) 40.5 % 20.5-60.0 [facility] MCH Auto (RBC) [Entitic mass ]on 07-29-2023 MCH (RBC) [Entitic mass] 31.3 pg 26.7-34.0 [facility] MCHC Auto (RBC) [Mass/Vol]on 07-29-2023 MCHC (RBC) [Mass/Vol] 33.1 g/dL 29.9-35.2 [facility] MCV Auto (RBC) [Entitic vol] on 07-29-2023 MCV (RBC) [Entitic vol] 94.6 fL 81.0-99.0 [facility] Monocytes Auto (Bld) [#/Vol] on 07-29-2023 Monocytes (Bld) [#/Vol] 0.8 10 3/uL 0.3-0.8 [facility] Monocytes/100 WBC Auto (Bld) on 07-29-2023 Monocytes/100 WBC (Bld) 8.7 % 1.7-12.0 [facility] Neutrophils Auto (Bld) [#/Vo l]on 07-29-2023 Neutrophils (Bld) [#/Vol] 4.2 10 3/uL 1.4-6.5 [facility] Neutrophils/100 WBC Auto (Bl d)on 07-29-2023 Neutrophils/100 WBC (Bld) 45.2 % 43.0-75.0 [facility] No Panel Informationon 07-28 Eosinophils # (Auto) 0.4 10 3/uL 0.0-0.7 [facility] Immature Granulocyte # (Auto) 0.02 10 3/uL 0.00-0.03 [facility] Platelet mean volume Auto (B ld) [Entitic vol]on 07-29-2023 Platelet mean volume (Bld) [Entitic vol] 11.2 fL 9.5-13.5 [facility] Platelets Auto (Bld) [#/Vol] on 07-29-2023 Platelets (Bld) [#/Vol] 249 10 3/uL 150-450 [facility] RBC Auto (Bld) [#/Vol]on RBC (Bld) [#/Vol] 4.41 10 6/uL 4.20-5.40 [facility] Serum or plasma albumin/glob ulin mass ratioon 07-29-2023 Albumin/Globulin [Mass ratio] 1.0 {ratio} [facility] Serum or plasma anion gap de terminationon 07-29-2023 Anion gap [Moles/Vol] 13.2 mmol/L [facility] Serum or plasma total choles terol/high density lipoprotein (HDL) cholesterol mass bessy 07-29-2023 Cholesterol.total/Cho lesterol in HDL [Mass ratio] 4.4 {ratio} [facility] Comment on above: 3.3 - 4.4 LOW RISK4. 4 - 7.1 AVERAGE RISK7.1 - 11.0 MODERATE RISK>11.0 HIGH RISK Alex 10-04-2022 L Specimen: [id number] Received: 10/04/22 Status: ULISES [place] Num: [id number] Spec Type: Surgical Subm Dr: Lois Limon MD Tissues: A Colon Biopsy (ASCENDING POLYPS) B Colon Biopsy (BNORMAL MUCOSA SIGMOID) Procedures: MARY ANN/Yuval Wooten/Micro L4/2 Age/ Patient Sex Location Account Attending Physician Dana Snyder 67/F [id number] Lois Limon MD SPEC NUM: [id number] RECD: 10/04/22 STATUS: ULISES VARELAKathy NUM: [id number] GILMER: 10/04/22- SUBM DR: Lois Limon MD ENTERED: 10/04/[address] [facility] [address]: SPEC TYPE: Surgical DEPT: S ORDERED: [...] submitted in one cassette labeled B1. Specimen: [id number] Received: 10/04/22 Status: ULISES [place] Num: [id number] Spec Type: Surgical Subm Dr: Lois Limon MD Tissues: A Colon Biopsy (ASCENDING POLYPS) B Colon Biopsy (BNORMAL MUCOSA SIGMOID) Procedures: HE/4 Gross/Micro L4/2 Patient: Dana Snyder [id number] (Continued) Specimen: [id number] Received: 10/04/22 (Continued) Signed (signatur e on file) Jaden Mauro MD 10/07/22 1002 Specimen: [id number] Received: 10/04/22 Status: ULISES [place] Num: [id number] Spec Type: Surgical Subm Dr: Lois Limon MD Tissues: A Colon Biopsy (ASCENDING POLYPS) B Colon Biopsy (BNORMAL MUCOSA SIGMOID) Procedures: Gross/Micro L4/2 Patient: Dana Snyder [id number] (Continued) Specimen: [id number] Received: 10/04/22 (Continued) Microscopic Description A. Two H E slides reviewed. The microscopic examination confirms the diagnosis. B. Two H E slides reviewed. The microscopic examination confirms the diagnosis. CPT Codes 08829f4 Specimen: [id number] Received: 10/04/22 Status: ULISES [place] Num: [id number] Spec Type: Surgical Subm Dr: Lois Limon MD Tissues: A Colon Biopsy (ASCENDING POLYPS) B Colon Biopsy (BNORMAL MUCOSA SIGMOID) Procedures: HE/4, Gross/Micro L4/2 Patient: Dana Snyder [id number] (Continued) Signed (signatur e on file) Jaden Mauro MD 10/07/22 1002 Normal [facility] CBC AUTO DIFFon 08-10-2022 BASO # 0.1 103/ul Normal 0.0-0.1 [facility] Comment on above: Performed By: #### C BC #### [facility] [address] [place] [address] Dr. Mj Dorsey Basophils/100 WBC (Bld) 0.9 % Normal 0.2-2.0 [facility] Comment on above: Performed By: #### C BC #### [facility] [address] [place] [address] Dr. Mj Dorsey EO # 0.3 103/ul Normal 0.0-0.7 [facility] Comment on above: Performed By: #### C BC #### [facility] [address] [place] [address] Dr. Mj Dorsey Eosinophils/100 WBC (Bld) 3.2 % Normal 0.9-7.0 [facility] Comment on above: Performed By: #### C BC #### [facility] [address] [place] [address] Dr. Mj Dorsey Erythrocyte distribution width (RBC) [Ratio] 11.9 % Normal 11.0-15.0 [facility] Comment on above: Performed By: #### C BC #### [facility] [address] [place] [address] Dr. Mj Dorsey Hematocrit (Bld) [Volume fraction] 41.4 % Normal 36.0-48.0 [facility] Comment on above: Performed By: #### C BC #### [facility] [address] [place] [address] Dr. Mj Dorsey Hemoglobin (Bld) [Mass/Vol] 13.9 g/dL Normal 12.0-16.0 [facility] Comment on above: Performed By: #### C BC #### [facility] [address] [place] [address] Dr. Mj Dorsey IG # 0.03 10e3/ul Normal 0.00-0.03 [facility] Comment on above: Performed By: #### C BC #### [facility] [address] [place] [address] Dr. Mj Dorsey IG % 0.3 % Normal 0.0-0.5 [facility] Comment on above: Performed By: #### C BC #### [facility] [address] [place] [address] Dr. Mj Dorsey LYMPH # 4.3 103/ul Critically high 1.2-3.8 [facility] Comment on above: Performed By: #### C BC #### [facility] [address] [place] [address] Dr. Mj Dorsey Lymphocytes/100 WBC (Bld) 41.3 % Normal 20.5-60.0 [facility] Comment on above: Performed By: #### C BC #### [facility] [address] [place] [address] Dr. Mj Dorsey MANUAL DIFF REQ NO Normal [facility] Comment on above: Performed By: #### C BC #### [facility] [address] [place] [address] Dr. Mj Dorsey MCH (RBC) [Entitic mass] 31.2 pg Normal 26.7-34.0 [facility] Comment on above: Performed By: #### C BC #### [facility] [address] [place], [place] [id number] Dr. Mj Dorsey MCHC (RBC) [Mass/Vol] 33.6 g/dL Normal 29.9-35.2 [facility] Comment on above: Performed By: #### C BC #### [facility] [address] [place] [address] Dr. Mj Dorsey MCV (RBC) [Entitic vol] 92.8 fL Normal 81.0-99.0 [facility] Comment on above: Performed By: #### C BC #### [facility] [address] [place] [address] Dr. Mj Dorsey MONO # 0.8 103/ul Normal 0.3-0.8 [facility] Comment on above: Performed By: #### C BC #### [facility] [address] [place] [address] Dr. Mj Dorsey Monocytes/100 WBC (Bld) 8.0 % Normal 1.7-12.0 [facility] Comment on above: Performed By: #### C BC #### [facility] [address] [place] [address] Dr. Mj Dorsey NEUT # 4.9 103/ul Normal 1.4-6.5 [facility] Comment on above: Performed By: #### C BC #### [facility] [address] [place] [address] Dr. Mj Dorsey Neutrophils/100 WBC (Bld) 46.3 % Normal 43.0-75.0 [facility] Comment on above: Performed By: #### C BC #### [facility] [address] [place] [address] Dr. Mj Dorsey Platelet mean volume (Bld) [Entitic vol] 10.4 fL Normal 9.5-13.5 [facility] Comment on above: Performed By: #### C BC #### [facility] [address] [place] [address] Dr. Mj Dorsey PLT 328 103/ul Normal 150-450 [facility] Comment on above: Performed By: #### C BC #### [facility] [address] [place] [address] Dr. Mj Dorsey RBC 4.46 106/ul Normal 4.20-5.40 [facility] Comment on above: Performed By: #### C BC #### [facility] [address] [place] [address] Dr. Mj Dorsey WBC 10.5 103/ul Normal 4.0-11.0 [facility] Comment on above: Performed By: #### C BC #### [facility] [address] [place] [address] Dr. Mj Dorsey GLYCOHEMOGLOBIN A1Con 2022 ADA RECOMMENDATION SEE BELOW Normal [facility] Comment on above: Result Comment: ADA RECOMMENDED LIMIT 4.0 - 6.0 ADA THERAPEUTIC TARGET < 7.0 ACTION SUGGESTED > 7.0 Performed By: #### A 1C #### [facility] [address] [place] [address] Dr. Mj Dorsey Glucose [Mass/Vol] 128 mg/dL Normal [facility] Comment on above: Performed By: #### A 1C #### [facility] [address] [place] [address] Dr. Mj Dorsey HbA1c (Bld) [Mass fraction] 6.1 % Normal 4.5-6.2 [facility] Comment on above: Performed By: #### A 1C #### [facility] [address] [place] [address] Dr. Mj Dorsey LIPID PROFILEon 08-10-2022 CHOL-HDL RATIO NORM SEE BELOW Normal [facility] Comment on above: Result Comment: 3.3 - 4.4 LOW RISK 4.4 - 7.1 AVERAGE RISK 7.1 - 11.0 MODERATE RISK >11.0 HIGH RISK Performed By: #### C MP, LIPID #### [facility] [address] [place] [address] Dr. Mj Dorsey Cholesterol [Mass/Vol] 153 mg/dL Normal <=200 [facility] Comment on above: Performed By: #### C MP, LIPID #### [facility] [address] [place] [address] Dr. Mj Dorsey Cholesterol in HDL [Mass/Vol] 41 mg/dL Normal 40-60 [facility] Comment on above: Performed By: #### C MP, LIPID #### [facility] [address] [address] [address] Mj Dorsey Cholesterol in LDL [Mass/Vol] 68.8 mg/dL Normal [facility] Comment on above: Performed By: #### C MP, LIPID #### [facility] [address] [address] [address] Mj Dorsey Cholesterol.total/Cho lesterol in HDL [Mass ratio] 3.7 {ratio} Normal [facility] Comment on above: Performed By: #### C MP, LIPID #### [facility] [address] [place] [address] Dr. Mj Dorsey HDL NORMAL > or = 60 mg/dl - LOW CARDIOVASCULAR RISK <40 mg/dl - HIGH CARDIOVASCULAR RISK Normal [facility] Comment on above: Performed By: #### C MP, LIPID #### [facility] [address] [place] [address] Dr. Mj Dorsey LDL CALC NORMAL SEE BELOW Normal [facility] Comment on above: Result Comment: <100 mg/dl OPTIMAL 100 - 129 mg/dl NEAR OR ABOVE OPTIMAL 130 - 159 mg/dl BORDERLINE HIGH 160 - 189 mg/dl HIGH >190 mg/dl VERY HIGH Performed By: #### C MP, LIPID #### [facility] [address] [place] [address] Dr. Mj Dorsey Triglyceride [Mass/Vol] 216 mg/dL Critically high <=150 [facility] Comment on above: Performed By: #### C MP, LIPID #### [facility] [address] [place] [address] Dr. Mj Dorsey VLDL CALC 43.2 mg/dL Normal [facility] Comment on above: Performed By: #### C MP, LIPID #### [facility] [address] [place] [address] Dr. Mj Dorsey PROF 14(COMP METB)on 023 Albumin [Mass/Vol] 3.5 g/dL Normal 3.4-5.0 [facility] Comment on above: Performed By: #### C MP, LIPID #### [facility] [address] [address] [address] Mj Dorsey Albumin/Globulin [Mass ratio] 1.0 {ratio} Normal [facility] Comment on above: Performed By: #### C MP, LIPID #### [facility] [address] [address] [address] Mj Dorsey ALP [Catalytic activity/Vol] 65 U/L Normal 46-116 [facility] Comment on above: Performed By: #### C MP, LIPID #### [facility] [address] [address] [address] Mj Dorsey ALT [Catalytic activity/Vol] 41 U/L Normal 14-59 [facility] Comment on above: Performed By: #### C MP, LIPID #### [facility] [address] [place] [address] Dr. Mj Dorsey Anion gap [Moles/Vol] 14.3 mmol/L Normal [facility] Comment on above: Performed By: #### C MP, LIPID #### [facility] [address] [place] [address] Dr. Mj Dorsey AST [Catalytic activity/Vol] 18 U/L Normal 15-37 [facility] Comment on above: Performed By: #### C MP, LIPID #### [facility] [address] [place] [address] Dr. Mj Dorsey Bilirubin [Mass/Vol] 0.3 mg/dL Normal 0.2-1.0 [facility] Comment on above: Performed By: #### C MP, LIPID #### [facility] [address] [place] [address] Dr. jM Dorsey Calcium [Mass/Vol] 8.7 mg/dL Normal 8.5-10.1 [facility] Comment on above: Performed By: #### C MP, LIPID #### [facility] [address] [place] [address] Dr. Mj Dorsey Chloride [Moles/Vol] 108 mmol/L Critically high 98-107 [facility] Comment on above: Performed By: #### C MP, LIPID #### [facility] [address] [address] [address] Mj Dorsey CO2 [Moles/Vol] 30.5 mmol/L Normal 21.0-32.0 [facility] Comment on above: Performed By: #### C MP, LIPID #### [facility] [address] [address] [address] Mj Dorsey Creatinine [Mass/Vol] 0.93 mg/dL Normal 0.55-1.02 [facility] Comment on above: Performed By: #### C MP, LIPID #### [facility] [address] [address] [address] Mj Dorsey EGFR-AF NIUEAN >60 Normal >=60 [facility] Comment on above: Performed By: #### C MP, LIPID #### [facility] [address] [place] [address] Dr. Mj Dorsey EGFR-NON AF NIUEAN >60 Normal >=60 [facility] Comment on above: Performed By: #### C MP, LIPID #### [facility] [address] [place] [address] Dr. Mj Dorsey Globulin (S) [Mass/Vol] 3.6 g/dL Normal [facility] Comment on above: Performed By: #### C MP, LIPID #### [facility] [address] [place] [address] Dr. Mj Dorsey Glucose [Mass/Vol] 121 mg/dL Critically high 74-106 [facility] Comment on above: Performed By: #### C MP, LIPID #### [facility] [address] [address] [address] Mj Dorsey Potassium [Moles/Vol] 4.8 mmol/L Normal 3.5-5.1 [facility] Comment on above: Performed By: #### C MP, LIPID #### [facility] [address] [address] [address] Mj Dorsey Protein [Mass/Vol] 7.1 g/dL Normal 6.4-8.2 [facility] Comment on above: Performed By: #### C MP, LIPID #### [facility] [address] [address] [address] Mj Dorsey Sodium [Moles/Vol] 148 mmol/L Critically high 136-145 [facility] Comment on above: Performed By: #### C MP, LIPID #### [facility] [address] [address] [address] Mj Dorsey Urea nitrogen [Mass/Vol] 14.0 mg/dL Normal 7.0-18.0 [facility] Comment on above: Performed By: #### C MP, LIPID #### [facility] [address] [address] [address] Mj Dorsey Urea nitrogen/Creatinine [Mass ratio] 15.1 mg/mg Normal [facility] Comment on above: Performed By: #### C MP, LIPID #### [facility] [address] [address] [address] Mj Dorsey MG MAMM SCREEN 3D EVY CADon 10-23-2021 MG MAMM SCREEN 3D EVY CAD Patient: DANA SNYDER Exam Date: 10/23/2021 : 1955 Gender:F Ordering : DR JUDITH ANTUNEZ M.D. Admission #: [id number] Family : Order #: [id number] CLICK HERE TO VIEW EXAM RADIOLOGY REPORT [...] Treatments None Family Cancers None LOCATION: [facility] BREAST COMPOSITION: Scattered areas fibroglandular density. FINDINGS: [...] Parks M.D. on 10/24/2021 at 12:08 Normal [facility] Vital Signs Date Time Vital Sign Value Performing Clinician Facility 03-16-2024 15:33-0500 Body height 154.9 cm Inder Kel DO Work Phone: [facility] 03-16-2024 15:33-0500 Body mass index (BMI) [Ratio] 37.98 kg/m2 Inder Kel DO Work Phone: [facility] 03-16-2024 15:33-0500 Body weight 91.17 kg Inder Kel DO Work Phone: [facility] 03-16-2024 15:33-0500 Diastolic blood pressure 89 mm[Hg] Inder Kel DO Work Phone: [facility] 03-16-2024 15:33-0500 Heart rate 76 /min Inder Kel DO Work Phone: [facility] 03-16-2024 15:33-0500 Systolic blood pressure 167 mm[Hg] Inder Kel DO Work Phone: [facility] 07-21-2023 15:34-0400 Body height 154.94 cm MD Judith Antunez Work Phone: [facility] [facility] 07-21-2023 15:34-0400 Body mass index (BMI) [Ratio] 37.6 kg/m2 MD Judith Antunez Work Phone: [facility] 07-21-2023 15:34-0400 Body weight 90.32 kg MD Judith Antunez Work Phone: [facility] 07-21-2023 15:34-0400 Diastolic blood pressure 82 mm[Hg] MD Judith Antunez Work Phone: [facility] 07-21-2023 15:34-0400 Heart rate 66 /min MD Judith Antunez Work Phone: [facility] 07-21-2023 15:34-0400 Systolic blood pressure 141 mm[Hg] MD Judith Antunez Work Phone: [facility] 10-04-2022 11:32-0400 Diastolic blood pressure 95 mm[Hg] MD Judith Antunez Work Phone: [facility] 10-04-2022 11:32-0400 Heart rate 60 /min MD Judith Antunez Work Phone: [facility] 10-04-2022 11:32-0400 Respiratory rate 16 /min MD Judith Antunez Work Phone: [facility] 10-04-2022 11:32-0400 SaO2% (BldA) [Mass fraction] 93 % MD Judith Antunez Work Phone: [facility] 10-04-2022 11:32-0400 Systolic blood pressure 129 mm[Hg] MD Judith Antunez Work Phone: [facility] 10-04-2022 10:06-0400 Body height 154.94 cm MD Judith Antunez Work Phone: [facility] 10-04-2022 10:06-0400 Body temperature 98.8 [degF] MD Judith Antunez Work Phone: [facility] 10-04-2022 10:06-0400 Body weight 85.72 kg MD Judith Antunez Work Phone: [facility] 07-18-2022 16:15-0400 Body height 153.67 cm Judith Antunez Other [facility] Other 07-18-2022 16:15-0400 Body mass index (BMI) [Ratio] 36.3 kg/m2 Judith Antunez Other [facility] Other 07-18-2022 16:15-0400 Body weight 85.73 kg Jduith Antunez Other [facility] Other 07-18-2022 16:15-0400 Diastolic blood pressure 80 mm[Hg] Judith Antunez Other [facility] Other 07-18-2022 16:15-0400 SaO2% (BldA) [Mass fraction] 97 % Judith Antunez Other [facility] Other 07-18-2022 16:15-0400 Systolic blood pressure 126 mm[Hg] Judith Tulio Other [facility] Other Encounters Encounter Date Encounter Type Care [...] 60 min Inder Kel DO Work Phone: [facility] Comment on above: Memory loss (Primary Dx); Word finding difficulty; Primary insomnia; TIMOTEO (obstructive sleep apnea) Start: 03-16-2024 End: 03-16-2024 ambulatory INDER KEL Not Available Start: 03-16-2024 End: 03-16-2024 Bamboo flowsheet Inder Kel DO Work Phone: [facility] Start: 03-16-2024 End: 03-16-2024 Bamboo flowsheet Inder Kel DO Work Phone: [facility] Start: 10-06-2023 End: 10-06-2023 ambulatory BECKY B APLING Not Available Start: 09-08-2023 End: 09-08-2023 ambulatory BECKY B APLING Not Available Start: 08-27-2023 End: 08-27-2023 Evaluation and management of inpatient RON Aviles [facility] Start: 08-26-2023 End: 08-26-2023 [address] [facility] Start: 08-19-2023 End: 08-19-2023 ambulatory Judith Antunez Facility:[facility] Start: 08-19-2023 End: 08-19-2023 ambulatory MD Judith Antunez Work Phone: [facility] Work Phone: Start: 08-19-2023 End: 08-19-2023 Patient encounter procedure MD Judith Antunez Work Phone: [facility] Work Phone: Start: 07-29-2023 End: 07-29-2023 ambulatory RON Aviles JANELLE Not Available Start: 07-29-2023 Non-patient / Non-visit MD Raquel Antunez Work Phone: [facility] [employer] Work Phone: Start: 07-21-2023 Patient encounter status MD Judith Antunez Work Phone: [facility] Start: 07-21-2023 End: 07-21-2023 Encounter for general adult medical examination without abnormal findings MD Judith Antunez Work Phone: [facility] Start: 07-21-2023 End: 07-21-2023 Patient encounter procedure MD Judith Antunez Work Phone: [facility] Work Phone: Start: 11-04-2022 End: 11-04-2022 ambulatory Imad Asaad Other [facility] Other Start: 11-04-2022 Telephone encounter Imad Asaad [facility] [employer] Start: 10-04-2022 End: 10-04-2022 ambulatory Imad Asaad Facility:[facility] Start: 10-04-2022 End: 10-04-2022 Admission to same day surgery center MD Judith Antunez Work Phone: [facility] Work Phone: Start: 10-04-2022 End: 10-04-2022 ambulatory MD Judith Antunez Work Phone: [facility] Work Phone: Start: 08-10-2022 End: 08-11-[address] JUDITH ANTUNEZ Facility:[facility] Start: 07-18-2022 End: 07-18-2022 ambulatory Judith Antunez Other [facility] Other Start: 07-18-2022 Encounter for genera l adult medical examination without abnormal findings Judith Antunez [facility] Start: 07-18-2022 Periodic preventive med est patient 40-64yrs Judith Antunez [facility] Start: 10-23-2021 End: 10-24-[address] JUDITH ANTUNEZ Facility:[facility] Start: 05-17-2019 Adult health examination Imad Asaad Other [facility] Other Start: 05-17-2019 Problem, abnormal examination Imad Asaad Other [facility] Other Procedures Date Procedure Procedure Detail Performing Clinician Start: 03-26-2024 ALL THYROID STIM HORMONE Idner Begum DO Work Phone: Start: 10-04-2022 Colonoscopy [...] 05/12/2024 2:45 PM EST Office Visit [facility] [address] [place] [phone] Inder Begum DO [address] [place] [address] [facility] Start: 03-16-2024 End: 03-16-2024 Patient encounter procedure 03/16/2024 4:00 PM EST Office Visit [facility] [address] [place] [address] Kel, DO Inder [address] [place] [address] Arrived [facility] Comment on above: Arrived Start: 03-16-2024 End: 03-16-2025 Cobalamin (Vitamin B12) [Mass/volume] in Serum or Plasma Vitamin B12 Lab Routine Memory loss Expected: 03/16/2024 (Approximate), Expires: 03/16/2025 [facility] Comment on above: Expected: 03/16/2024 (Approximate), Expires: 03/16/2025 Start: 03-16-2024 End: 03-16-2025 EEG awake or drowsy EEG awake or drowsy Neurology Routine Memory loss Expected: 03/16/2024 (Approximate), Expires: 03/16/2025 [facility] Work Phone: Comment on above: Expected: 03/16/2024 (Approximate), Expires: 03/16/2025 Start: 03-16-2024 End: 03-16-2025 Folate [Mass/volume] in Serum or Plasma Folate Lab Routine Memory loss Expected: 03/16/2024 (Approximate), Expires: 03/16/2025 [facility] Comment on above: Expected: 03/16/2024 (Approximate), Expires: 03/16/2025 Start: 03-16-2024 End: 03-16-2025 MR Brain WO contrast MR brain wo contrast Imaging Routine Memory loss Expected: 03/16/2024, Expires: 03/16/2025 [facility] Comment on above: Expected: 03/16/2024 , Expires: 03/16/2025 Start: 03-16-2024 End: 03-16-2025 Thyrotropin [Units/volume] in Serum or Plasma TSH Lab Routine Memory loss Expected: 03/16/2024 (Approximate), Expires: 03/16/2025 [facility] Comment on above: Expected: 03/16/2024 (Approximate), Expires: 03/16/2025 Start: 11-30-2023 Influenza vaccination Influenza Vacc ine (#1) [facility] Start: 08-19-2023 Screening mammograph y of bilateral breasts MM screening mammo BI w/CAD [facility] Start: 10-04-2022 [facility] Start: 2022 Pneumococcal Vaccine : 65+ Years (1 of 1 - PCV) Pneumococcal Vaccine: 65+ Years (1 of 1 - PCV) [facility] Start: 1997 Screening for malign ant neoplasm of breast Mammogram [facility] Start: 1955 Screening for malign ant neoplasm of colon [facility] Comprehensive metabo lic 2000 panel - Serum or Plasma [facility] Patient Education Colon polyps H emorrhoids (DC) Diverticulosis (DC) [facility] Work Phone: Immunizations Immunization Date Immunization Notes Care Provider Mikayla bennett 01-06-2023 Influenza, Seasonal, Quadrivalent, Adjuvanted Inder Begum DO Work Phone: [facility] 01-06-2023 influenza virus vaccine, unspecified formulation Inder Kel DO Work Phone: [facility] 12-26-2021 influenza virus vaccine, split virus (incl. purified surface antigen) Imad Asaad Other [facility] Other 12-26-2021 influenza virus vaccine, unspecified formulation MD Judith Antunez Work Phone: [facility] 12-26-2021 influenza, injectabl e, quadrivalent, preservative free Inder Kel DO Work Phone: [facility] 03-14-2021 COVID-19 Vaccine Pfi zer - Documentation Purposes Only Imad Asaad Other [facility] 03-14-2021 influenza virus vaccine, split virus (incl. purified surface antigen) Imad Asaad Other [facility] Other 03-14-2021 influenza virus vaccine, unspecified formulation MD Judith Antunez Work Phone: [facility] 03-14-2021 Influenza, injectabl e, Madin War Canine Kidney, preservative free, quadrivalent Inder Kel DO Work Phone: [facility] 07-20-2020 COVID-19 Vaccine Pfi zer - Documentation Purposes Only Imad Asaad Other [facility] 06-29-2020 COVID-19 Vaccine Pfi zer - Documentation Purposes Only Imad Asaad Other [facility] 02-10-2020 influenza virus vaccine, split virus (incl. purified surface antigen) Imad Asaad Other [facility] Other 02-10-2020 influenza virus vaccine, unspecified formulation MD Judith Antunez Work Phone: [facility] 02-10-2020 influenza, injectabl e, quadrivalent, contains preservative Inder Kel DO Work Phone: [facility] 01-12-2019 influenza, injectabl e, quadrivalent, preservative free Inder Kel DO Work Phone: [facility] 12-30-2017 influenza, live, intranasal, quadrivalent Inder Kel DO Work Phone: [facility] 12-01-2017 influenza virus vaccine, split virus (incl. purified surface antigen) Imad Asaad Other [facility] Other 12-01-2017 influenza virus vaccine, unspecified formulation MD Judith Antunez Work Phone: [facility] 12-01-2017 influenza, injectabl e, quadrivalent, preservative free Inder Kel DO Work Phone: [facility] 12-23-2016 influenza, injectabl e, quadrivalent, preservative free Inder Kel DO Work Phone: [facility] 12-23-2016 tetanus and diphther ia toxoids, adsorbed, preservative free, for adult use (5 Lf of tetanus toxoid and 2 Lf of diphtheria toxoid) Imad Asaad Other [facility] 01-25-2016 tetanus and diphther ia toxoids, adsorbed, preservative free, for adult use (5 Lf of tetanus toxoid and 2 Lf of diphtheria toxoid) Imad Asaad Other [facility] Payers Date Payer Category Payer Self-pay 2021 [facility] [id number] 1959 [facility] CBKAN [id number] 1957 Unknown [id number]. 2.593 1957 Unknown [id number] [id number]. 2.593 1957 Unknown [id number] [id number]. 2.1286 1957 Unknown [id number] [id number]. 2.1286 1957 Unknown [id number] [id number]. 2.1259 1957 Unknown [id number] [id number]. 2.1259 1957 Unknown [id number] [id number]. 2.1259 1957 Unknown [id number] [id number]. 2.1259 1957 Unknown [id number] [id number]. 2.1259 Unknown [id number] [id number]. 2.531 Unknown [id number] [id number]. 2.531 Social History Date Type Detail Facility Unknown if ever smoked [facility] Other Start: 10-06-2023 End: 03-16-[address] [facility] Other Start: 10-04-2022 End: 03-16-2024 Tobacco smoking status NHIS Ex-smoker (finding) [facility] Start: 1955 Sex Assigned At Female [facility] Start: 03-31-1999 End: 03-31-2004 History of tobacco use Current smoker [facility] Start: 03-31-1999 End: 03-31-2004 History of tobacco use Cigarette Smoker [facility] Start: 07-29-2023 End: 03-16-2024 Cigarettes [...] family history of dementia - labs @ [facility]; referral received from Dr Judith Antunez MD [...] find the words. 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 She states she can get lost and forget where she at while she is playing. Not enough that she has been asked not to play. She can look at her computer at work and forget what she is doing. It does coma back to her. 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 She [...] She will take a nap Friday after [employer] and she feels better. She will sleep [...] & Type Note Facility 10-04-2022 Procedure note [facility] Evaluation note 07-18-2022 Note Date [...] L20.82) Start new med - steroid cream. [facility] Other Evaluation note 05-17-2013 Note Date & Type Note Facility 05-17-2013 Evaluation note Diagnosis Onset Date Essential (primary) hypertension acute Hyperlipidemia, unspecified May 17, 2013 acute Left trigger finger acute Pain of left breast acute Wellness examination acute [facility] Work Phone: Evaluation note Note Date & Type Note Facility Evaluation note No assessment information availa [facility] Work Phone: Evaluation note Note Date & Type Note Facility Evaluation note No Information [facility] Other Evaluation note Note Date & Type Note Facility Evaluation note Diagnosis Memory loss- Primary Word finding difficulty Primary insomnia Persistent disorder of initiating or maintaining sleep TIMOTEO (obstructive sleep apnea) Obstructive sleep apnea (adult) (pediatric) documented in this encounter [facility] History and physical note Note Date & Type Note Facility History and physical note Note Date/Time October 04, 2022 10:57 am [facility] [address] [place] [address] Gastroenterology H&P Signed Patient: Dana Snyder MR#: [id number] : 1955 Acct:[id number] Age/Sex: 67 / F Adm Date: 3 Loc: Room: Type: [facility] Attending Dr: Lois Limon MD Copies to: [...] <Electronically signed by Lois Limon MD> 10/04/221056 [facility] Work Phone: History general Narrative - Reported [...] HYSTERECTOMY COMPLETE Hospitalization History SEE SURGICAL HX [facility] Other Hospital Discharge instructions Note Date & [...] pathology -Follow up with PCP. -Office number [phone]. [facility] Work Phone: Summary Purpose Family History [...] of other mental and behavioral disorders Procedures [place] OFFICE/OUTPATIENT [facility] Judith Antunez MD [address] [place] [address] Phone: tel: fax: Vernon Light MD [address] [place] [address] Phone: tel: fax: Referral ID Status Reason Start Date Expiration Date V isits Requested Visits Authorized [id number] Closed Consult and Treat 02/13/2024 08/11/2024 1 1 INFORMATION SOURCE (unrecogn ized section and content) DATE CREATED AUTHOR 08/11/2022 [facility] DATE CREATED AUTHOR AUTHOR'S ORGANIZ ATION 08/22/2023 [facility] DATE CREATED AUTHOR AUTHOR'S ORGANIZ ATION 08/28/2023 [facility] DATE CREATED AUTHOR AUTHOR'S ORGANIZ ATION 04/11/2024 [facility] EPIC Care Teams (unrecognized sec [...] August 19, 2023 End: August 19, 2023 Member Services Representative Relationship Specialty Start Date End Date Judith Antunez MD [address] [place] [place] [id number] PCP - General Family Medicine 07/29/23 Member Services Representative Relationship Specialty Start Date End Date Judith Antunez MD [address] [place] [facility] [id number] PCP - [facility] Medicine 07/29/23 Member Services Representative Relationship Specialty Start Date End Date Judith Antunez MD [address] [place] [facility] [address] PCP - General Family Medicine 07/29/23 [...] BE BASED ON THE PRIMARY CLINICAL RECORDS. [employer] [facility]. provides no warranty or guarantee of the accuracy or completeness of information in this document.
== END 2024-04-29 08:37 | disposition home or self-care (01) ==
LOC: CT 08:36
PROVIDERS: PCP Family Medicine; Visit Provider Family Medicine
DX: R10.9 Unspecified abdominal pain (principal); K57.90 Diverticulosis of intestine, part unspecified, without perforation or abscess without bleeding
CPT/HCPCS: 74176

== ENCOUNTER 2024-10-14 14:48 | Outpatient (RCR) | payer MEDICARE, BC, SELFPAY | END 2024-11-06 06:48 | disposition home or self-care (01) | LOC: PT 14:48 | PROVIDERS: PCP Family Medicine; Visit Provider Physician Assistant | DX: M25.512 Pain in left shoulder (principal) | CPT/HCPCS: 97035; 97110; 97140; 97161 ==

== ENCOUNTER 2025-03-22 08:43 | Outpatient (OUT) | payer MEDICARE, BC, SELFPAY ==
--- OUTSIDE RECORDS SUMMARY | 2025-03-18 05:17 | XMS_ITS | Continuity of Care Document ---
Author Organization [facility] Address [address] [place] [address] Phone Care Team Providers Care Petroleum Geologist Name Role Phone Judith Armstrong MD Primary Care Provider Judith Armstrong MD Attending Provider Care Teams Patient Care Team Team Status: Active Member Role/Relationship Status Dates Judith Armstrong MD Primary Care Provider Active Patient Care Team Team Status: Inactive Member Role/Relationship Status Dates Judith Armstrong MD Primary Care Provider Active Start: March 18, 2025 End: March 18, 2025Judith Armstrong MDAttending ProviderActiveStart: March 18, 2025 End: March 18, 2025 Chief Complaint and Reason for Visit Chief Complaint Admit Date R Abd/Side Pain March 18, 2025 9:21am Allergies, Adverse Reactions, Alerts Allergen Type Severity Reaction Last Updated Verified Status No Known Allergies Allergy Unknown March 18, 2025 9:41amYesActive Social History Smoking Status Status Start Date End Date Date of Observa tion Ex-smoker (finding) October 04, 2022 10:08am Observation Status Observation Response Date of Response Legal Sex Female (finding) Sex Assigned At [facility] 1955 Family History Relationship Condition Age at Onset Recorded Date/T edie mother Malignant neoplasm of pancreas Unknown grandparentMalignant neoplasm of colonUnknownbrotherDeceasedUnknownmother DeceasedUnknownFamily history of pancreatic cancerUnknownfatherDementiaUnknown Problems Active Problems Problem Diagnosis/Recorded Date Onset Date Stat us RLQ abdominal pain March 18, 2025 10:05am Unknown Active Acute right flank pain April 13, 2024 9:16am Unkno wn Active Bicipital tendinitis, left shoulder October 07, 2024 8:09am Unknown Active Trigger finger, right index finger October 07, 2024 8:03am Unknown Active Trigger finger, right ring finger October 07, 2024 8:03am Unknown Active Rotator cuff syndrome of lef t shoulder October 07, 2024 8:08am Unknown Active Type 2 diabetes mellitus wit h hyperglycemia March 18, 2025 10:06am Unknown Active Screening mammogram for justo st cancer July 22, 2023 11:30am Unknown Active Pain of left breast July 21, 2023 3:03pm Unknown Active Trigger finger, right September 28, 2024 10:08am Unknown Active Left trigger finger July 21, 2023 3:00pm Unknown Active S/P trigger finger release July 21, 2023 8:21am Unk nown Active Wellness examination July 21, 2023 2:58pm Unknown Active Hyperlipidemia, unspecified July 21, 2023 8:19am Fe bruary 2013 Active Pre-op exam October 07, 2024 8:04am Unknown Activ e Essential (primary) hypertension July 21, 2023 8:19am Unknown Active Family history of dementia February 12, 2024 9:10am Unknown Active Status post carpal tunnel release October 07, 2024 2:29pm Unknown Active Left shoulder pain September 28, 2024 10:09am Unknown Active Skin lesion of face February 12, 2024 9:11am Unknown Active Inactive/Resolved Problems Problem Diagnosis/Recorded Date Onset Date Stat us Word finding difficulty February 12, 2024 9:09am Unk nown Resolved Concern about memory February 12, 2024 9:10am Unknow n Resolved Medications Medication Status Dose Units Route Directions Qty Days Refills S tart Date Stop Date End Date Reason(s) Instructions Adherence Lisinopril 10 mg tablet Discontinued 0 .ROUTE.UPEIWRE803Ynjdz 2023 8:28amJuly 2023 7:13amTAKE 1 TABLET BY MOUTH EVERY DAYSimvastatin 40 mg tabletDiscontinued0.ROUTE.UWCTALP302Txuil 2023 8:28amJuly 2023 7:13amTAKE 1 TABLET BY MOUTH EVERY DAYMetoprolol Succinate 100 mg tablet extended release 24 hrDiscontinued0.ROUTE.DDOKFSK470 July 09, 2023 8:28amJuly 2023 7:13amTAKE 1 TABLET BY MOUTH EVERY DAY Paroxetine Hcl 30 mg tabletDiscontinued0.ROUTE.PCOFLUL098RfqkiJuly 09, 2023 8:October 07, 2023 7:13amTAKE 1 TABLET BY MOUTH EVERY DAYLisinopril 10 mg tablet Discontinued0.ROUTE.2023 7:13amJanuary 2024 1:19pmTAKE 1 TABLET BY MOUTH EVERY DAYMetoprolol Succinate 100 mg tablet extended release 24 hrDiscontinued0.ROUTE.2023 7:13amJanuary 2024 1:19pm TAKE 1 TABLET BY MOUTH EVERY DAYParoxetine Hcl 30 mg tabletDiscontinued0.ROUTE .2023 7:13amJanuary 2024 1:19pmTAKE 1 TABLET BY MOUTH EVERY DAYSimvastatin 40 mg tabletDiscontinued0.ROUTE.2023 7:13amJanuary 2024 1:19pmTAKE 1 TABLET BY MOUTH EVERY DAYParoxetine Hcl 30 mg tabletDiscontinued0.ROUTE.2024 1:19pmJuly 2024 8:34amTAKE 1 TABLET BY MOUTH EVERY DAYMetoprolol Succinate 100 mg tablet extended release 24 hrDiscontinued0.ROUTE.2024 1:19pmJuly 2024 8:34amTAKE 1 TABLET BY MOUTH EVERY DAYSimvastatin 40 mg tablet Discontinued0.ROUTE.2024 1:19pmJuly 2024 8:34amTAKE 1 TABLET BY MOUTH EVERY DAYLisinopril 10 mg tabletDiscontinued0.ROUTE.April 01, 2024 1:19pmJuly 2024 8:34amTAKE 1 TABLET BY MOUTH EVERY DAY Paroxetine Hcl 30 mg tabletActive0.ROUTE.2024 8:34amTAKE 1 TABLET BY MOUTH EVERY DAYComplies with drug therapyMetoprolol Succinate 100 mg tablet extended release 24 hrActive0.ROUTE.2024 8:34amTAKE 1 TABLET BY MOUTH EVERY DAYComplies with drug therapySimvastatin 40 mg tablet Active0.ROUTE.DPBWZEC277Htmw 2024 8:34amTAKE 1 TABLET BY MOUTH EVERY DAY Complies with drug therapyLisinopril 10 mg tabletActive0.ROUTE.WACYGXI771Lvwf 2024 8:34amTAKE 1 TABLET BY MOUTH EVERY DAYComplies with drug therapy Metoprolol Succinate 100 mg tablet extended release 24 miBnlaaixzvmen681UDPE DailyJuly 2022 11:00pmApril 2023 8:28amSimvastatin 40 mg tablet Ebsejjfrtgqy39SNFHZfvjaNkji 2022 11:00pmApril 2023 8:28amParoxetine Hcl 30 mg vpwlxfUighfurunqak03VLXFDuaakAdnt 2022 11:00pmApril 2023 8:28amLisinopril 10 mg sgqpbhHsotndmhprtd79XKWJMllxfFttv 2022 11:00pmApril 2023 8:28amTamsulosin (Flomax) 0.4 mg capsuleDiscontinued0.3FHTZNpatg10 April 13, 2024 12:00amJuly 2024 10:03amClobetasol 0.05 % cream Qwxrrgydbaye9MQTVXIOSOOCPHKaxdh dailyJune 2024 11:00pmJuly 2024 9:46amFreeTextSi application Externally Twice a day; Note: Source Status: Start; Refills: 1; Provider: Patti Wong EMeloxicam 15 mg kazciaYpxvnf76FQBX Rdtdb021Rjxy 2024 11:00pmComplies with drug therapyTramadol 50 mg tablet Ckxuqt86CDQCMokwg 6 hours as needed for yror1449Zkpe 2024 11:00pmStatus post carpal tunnel release Other specified postprocedural statesTO BE USED POST OP 10/08/24Complies with drug therapy Immunizations Immunization Event Date Not Given Reason Dose Number Advertising Manager Lot Number Reason(s) Given Vaccine Information Statement (VIS) Detail Administration Location COVID-19 mRNAPoppy (Genwords) June 29 COVID-19 mRNAPoppy (Genwords)July 20OVID-19 mRNA Comgordon ([employer])March 14, 2021influenza, unspecified formulationSeptember 2017 influenza, unspecified formulationNovember 2019influenza, unspecified formulationDecember 2020influenza, unspecified formulationSeptember 2021Tetanus, Diphtheria adult, 5 Lf pres free absOctober 2015Tetanus, Diphtheria adult, 5 Lf pres free absSeptember 2016 Vital Signs Vital Reading Result Reference Range Collection Date/Time Height 61 [in_i] March 18, 2025 9:85tpQewaou59.46 kgDecemb2024 9:38amBody Pswxtrphilw78.5 [degF]97.6-99.0Dece2024 9:49amHeart Rate65 /bmj64-838 March 18, 2025 9:49amBP Xdnxlbdf142 mm[Hg]100-140Dece2024 9:49am BP Xvmcbgscd55 mm[Hg]60-100[facility] 2024 9:49amBMI (Body Mass Index)34.7 kg/o0Fssjfrfs2024 9:38am Advance Directives Advance Directive Response Recorded Date/ Time Advance Directives No October 02 9:32am Insurance Providers Guarantor Dana Snyder Address [address] [facility] [address]Bpplhyw Info.Home Phone: Coverage Status Update:2024 Payer Group Member ID Coverage Type Subscriber Relationship to Subscriber Effective Date Expiration Date Clarisa GOMEZ Id: [id number] K Riegel Id: [id number] [address] [address] Home Phone: Email: [email or web address] [email or web address] [id number] K Riegel Id: [id number] [address] [address] Home Phone: Email: [email or web address] PG[facility] [email or web address] K Riegel Id: [id number] [address] [place] [id number] Home Phone: Email: [email or web address] Encounters Encounter Location(s) Arrival/Admit Date Discharge/Departure Date Discharge/Departure Disposition Provider(s) Departed Physician/ Provider Office Visit -[facility] March 18, 2025 9:21am March 18, 2025 10:15am Discharged to home care or self care (routine discharge) Judith Armstrong MD Plan of Treatment Future Tests Future scheduled test information is unavailable Pending Tests Test Name Ordered Date Scheduled Date CT abdomen pelvis w con March 18, 2025 10:0 4am Comprehensive Metabolic PanelDeceer 2024 10:04am Future Visits Future appointment information is unavailable Future Procedures Procedure Name Ordered Date Scheduled Date A1C with Estimated Average Glu March 18 10:04am Complete Blood Count Auto DiffDeceer 2024 10:04amUrine CultureDeceer 2024 10:04amMicroAlb Creat Ratio,UDeceer 2024 10:04amUrinalysis March 18, 2025 10:04am Future Medications Future medication information is unavailable Patient Instructions Patient instructions are unavailable
--- OUTSIDE RECORDS SUMMARY | 2025-03-22 08:49 | XMS_ITS | Clinical Summary ---
Author Organization [facility] Address [address] [place] [address] Care Team Providers Care Floral Associate Name Role Phone Judith Armstrong MD Primary Care Provider [phone] Rupali Vincent DO Unavailable [phone] Angelina Luna ELECTRONIC SERVICE TECHNICIAN Unavailable Allergies No known active allergies Medications MedicationSigDispense QuantityRefillsLast FilledStart DateEnd DateStatus lisinopril 10 MG tablet .YLFJMAW3607/09/2023ctive PARoxetine (Paxil) 30 MG tablet .XHDDEJE9307/09/2023ctive simvastatin (Zocor) 40 MG tablet .FEQVKJR7007/09/2023ctive metoprolol succinate XL (Toprol-XL) 100 MG 24 hr tablet Take 100 mg by mouth Daily07/09/2023ctive phenylephrine (Sudafed PE) 10 MG tablet Take 10 mg by mouth in the morning. Take before meals.Active Active Problems ProblemNoted DateDiagnosed DateArthritis of carpometacarpal (CMC) joint of left thumb07/22/2023Essential (primary) cozlvlrjxirr85/23/2024Hyperlipidemia, ayrgmefqzmb97/17/2014 Immunizations ImmunizationAdministration DatesNext DueInfluenza, Seasonal, Quadrivalent, Oduzdbnnfn18/09/2023Influenza, injectable, MDCK, preservative free, quadrivalent 03/14/2021Influenza, injectable, ucznpjvxifdw50/12/2020Influenza, injectable, quadrivalent, preservative free12/26/2021,01/12/2019,12/01/2017,12/23/2016 Influenza, live, intranasal, aonlowcpbiyt51/02/2018Td (adult), 5 Lf tetanus toxoid, preservative free, nkdwjqip44/25/2017,01/25/2016 Family History Medical HistoryRelationNameCommentsDementiaFatherEdward KrombachCancerMother [place] KrombachRelationNameStatusCommentsFatherEdward KrombachDeceasedMotherLeona KrombachDeceased Social History Tobacco UseTypesPacks/DayYears UsedDateSmoking Tobacco: FormerCigarettes0.55 03/31/1999 - 03/31/2004Smokeless Tobacco: NeverAlcohol UseStandard Drinks/Week CommentsNot Currently0 (1 standard drink = 0.6 oz pure alcohol)Comments UnknownSex and Gender InformationValueDate RecordedSex Assigned at BirthFemale 07/28/2023 7:59 PM EDTLegal OckBmaebs38/15/2023 6:44 PM EDTGender IdentityFemale 07/28/2023 7:59 PM EDTSexual DyxafbqzykrIvewpdcd91/29/2024 7:59 PM EDT Last Filed Vital Signs Vital SignReadingTime TakenCommentsBlood Egnbmvqa334/8206/09/2024 8:38 AM EDT Bwhix681606/09/2024 8:38 AM EDTTemperature--Respiratory Rate--Oxygen Svobtgfbsy93% 06/09/2024 8:38 AM EDTInhaled Oxygen Concentration--Zkmbkg85.6 kg (202 lb) 06/09/2024 8:38 AM ERSEdfqku807.9 cm (5' 1 )06/09/2024 8:38 AM EDTBody Mass Index38.17006/09/2024 8:38 AM EDT Plan of Treatment Not on file Insurance * Guarantor: Dana Snyder TypeRelation to PatientDate of BirthPhone Billing AddressPersonal/OylleqPslx[birth year][address] [address] Care Teams Team MemberRelationshipSpecialtyStart DateEnd Date Judith Armstrong MD PCP - GeneralFamily Medicine07/29/23 Rupali Vincent DO [address] [place] [address] Referring PhysicianNeurolog05/12/24 Angelina Luna NP [address] [place] [address] Nurse PractitionerNeurology06/09/24
--- OUTSIDE RECORDS SUMMARY | 2025-03-22 08:49 | XMS_ITS | Clinical Summary ---
Author Organization [employer] [facility] tem Address [id number] [address] [place] [address] Care Team Providers Care Senior Formulation Scientist Name Role Phone Judith Armstrong MD Primary Care Provider [phone] Allergies No known active allergies Medications MedicationSigDispense QuantityRefillsLast FilledStart DateEnd DateStatus lisinopriL (PRINIVIL,ZESTRIL) 10 mg tablet Take 1 tablet (10 mg total) by mouth in the morning.07/09/2023ctive metoprolol succinate XL (TOPROL XL) 100 mg 24 hr tablet Take 1 tablet (100 mg total) by mouth in the morning.07/09/2023ctive PARoxetine (PAXIL) 30 mg tablet Take 1 tablet (30 mg total) by mouth every morning.07/09/2023ctive simvastatin (ZOCOR) 40 mg tablet Take 1 tablet (40 mg total) by mouth nightly.07/09/2023ctive Social History Tobacco UseTypesPacks/DayYears UsedDateSmoking Tobacco: NeverSmokeless Tobacco: Never Tobacco Cessation:Counseling Given: Not Answered Alcohol UseStandard Drinks/WeekCommentsYes0 (1 standard drink = 0.6 oz pure alcohol)occasionalChildcareAnswerDate WrcojthrGtyrsocjmMuzufzz89/12/2019 EmploymentAnswerDate WmmufdkkFtdjedltalPwltzia55/12/2019CommentsNoSex and Gender InformationValueDate RecordedSex Assigned at BirthNot on fileLegal RzgLpyoar87/06/2015 11:35 AM EDTGender IdentityNot on fileSexual OrientationNot on file Last Filed Vital Signs Vital SignReadingTime TakenCommentsBlood Pressure--Pulse--Temperature-- Respiratory Rate--Oxygen Saturation--Inhaled Oxygen Concentration--Fpvhvh88 kg (194 lb)08/26/2023 10:14 AM VYBOjlaos762.9 cm (5' 1 )08/26/2023 10:14 AM EDTBody Mass Index36.66008/26/2023 10:14 AM EDT Plan of Treatment Health MaintenanceDue DateLast DoneCommentsDepression Blzezgftl41/06/1970Zoster (Shingles) Vaccine (1 of 2)2007DTaP,Tdap and Td Vaccines (1 - Tdap) , 01/25/2016Fall Risk Zenzjhjzj91/06/2023dult BMI Screening Tobacco Pydiyrkau29Influenza Vaccine 510/11/2022, 12/26/2021, 03/14/2021, Additional history existsRSV ( or age 60+ yrs) (1 - 1-dose 75+ series)2032 [employer] Not on file Insurance Care Teams Team MemberRelationshipSpecialtyStart DateEnd Date Judith Armstrong MD [address] [place] [id number] PCP - GeneralFamily Medicine08/20/23
--- NOTE | 2025-03-22 09:12 | CT_ITS ---
The [address] [address] Patient Name: DANA BISHOP MRN: [id number] date: 1955 Sex: F Assigned Patient Location: LAB Current Patient Location: LAB Accession/Order Number: [id number] Exam Date: 03/22/2025 10:18 Report Date: 03/22/2025 11:53 At the request of: CHYNA ANTUNEZ MD Procedure: CT abdomen pelvis w con CT ABDOMEN AND PELVIS WITH CONTRAST COMPARISON: 04/29/2024 CLINICAL DATA: Right lower quadrant and flank pain for the past 11 days. Chronic diarrhea. History of kidney stones. Spiral images were obtained through the abdomen and pelvis following oral and 100 mL of Omnipaque 350. This CT exam was performed using one or more following dose reduction techniques: Automated exposure control, adjustment of the mA and/or kV according to patient size, or use of iterative reconstruction technique. Limited cuts through the lung bases show a lingular calcified granuloma. Fatty infiltration of the liver is noted. The gallbladder is surgically absent. No common duct stones are seen. The spleen, pancreas and adrenal glands show no acute abnormalities. There are symmetric renal nephrograms, without hydronephrosis. The abdominal aorta is normal caliber. No lymphadenopathy or ascites is identified. Small bowel loops are normal caliber. Stool is present throughout the colon. There are degenerative changes at the spine, greatest at the facets. Images through the pelvis show normal caliber small bowel. No appendiceal inflammation is seen. There is mild distal colonic stool. Sigmoid diverticula are present, without associated active inflammation. The uterus is surgically absent. There are no urinary bladder abnormalities for the degree of distention. No ascites is noted. CT/CT abdomen pelvis w con IMPRESSION: FATTY LIVER. NO BOWEL OR URINARY TRACT OBSTRUCTION. NO APPENDICITIS. DIVERTICULOSIS. NO ACUTE FINDINGS. Impression dictated by: Dana Gutierrez M.D. 03/22/2025 11:53 AM Dictation Location: [facility] Electronically authenticated by: [id number] Y Date: 03/22/2025 11:53
[2025-03-22 09:46] LABS: Microalbum Creatinine Ratio Ur 10.5 mg/g (0.0-29.9)
[2025-03-22 09:47] LABS: Alanine Aminotransferase 27 U/L (14-59); Albumin Globulin Ratio 1.2; Albumin Level 4.0 g/dL (3.4-5.0); Alkaline Phosphatase 67 U/L (46-116); Anion Gap 10.5; Aspartate Amino Transferase 17 U/L (15-37); Blood Urea Nitrogen 17.0 mg/dL (7.0-18.0); Calcium 9.2 mg/dL (8.5-10.1); Carbon Dioxide 30.5 mmol/L (21.0-32.0); Chloride 106 mmol/L (98-107); Estimated GFR (African America >60 (>=60 mL/min/1.73m^2); Estimated GFR (Non-African Ame >60 (>=60 mL/min/1.73m^2); Globulin 3.4 g/dL; Glucose 137 mg/dL (74-106); Potassium 4.0 mmol/L (3.5-5.1); Sodium 143 mmol/L (136-145); Total Protein 7.4 g/dL (6.4-8.2)
[2025-03-22 09:52] LABS: Hematocrit 44.6 % (36.0-48.0); Hemoglobin 15.1 g/dL (12.0-16.0); Immature Granulocytes Abs Auto 0.02 10^3/uL (0.00-0.03); Immature Granulocytes Pct Auto 0.2 % (0.0-0.5); Lymphocytes Absolute Auto 3.7 10^3/uL (1.2-3.8); Mean Corpuscular HGB Conc 33.9 g/dL (29.9-35.2); Mean Corpuscular Hemoglobin 32.1 pg (26.7-34.0); Mean Corpuscular Volume 94.7 fL (81.0-99.0); Platelet Count 300 10^3/uL (150-450); Red Blood Count 4.71 10^6/uL (4.20-5.40); White Blood Count 10.1 10^3/uL (4.0-11.0)
[2025-03-22 10:46] LABS: Glucose Urine UA NEGATIVE (NEGATIVE)
[2025-03-22 11:37] LABS: Crystals Seen? None Seen #/HPF (None Seen)
[2025-03-22 11:38] LABS: Cast Seen? SEEN #/LPF (NONE SEEN)
== END 2025-03-22 08:44 | disposition home or self-care (01) ==
LOC: LAB 08:45
PROVIDERS: PCP Family Medicine; Visit Provider Family Medicine
DX: R10.9 Unspecified abdominal pain (principal); R10.31 Right lower quadrant pain; E11.65 Type 2 diabetes mellitus with hyperglycemia
CPT/HCPCS: 36415; 74177; 80053; 81001; 82043; 82570; 83036; 85025; Q9967